=== PATIENT | female | born 1960 | race American Indian/Alaskan Native ===

== ENCOUNTER 2017-01-15 12:56 | Emergency (ER) | payer MEDICAID ==
[2017-01-15 12:56] VITALS: BMI 14.6
[2017-01-15 13:12] VITALS: RESP 18
[2017-01-15] MEDS ORDERED: Oxycodone/Acetaminophen 5/325 mg Tab PO STA (13:27)
[2017-01-15] MEDS ORDERED: Oxycodone/Acetaminophen 5/325 mg Tab ONE (13:36)
--- NOTE | 2017-01-15 14:00 | C.PDOC ---
History Of Present Illness 56 y/o female presents to ED with complaints of right leg pain for 1 week. Patient states she saw her PMD for symptoms and was given Flexiril with no relief which prompted visit to ED today. Patient denies trauma, injury, fever, weakness, back pain, history of DVT or PE. No other complaints at this time. Time Seen by Provider: 01/15/17 13:15 Chief Complaint (Nursing): Lower Extremity Problem/Injury History Per: Patient History/Exam Limitations: no limitations Onset/Duration Of Symptoms: Days Current Symptoms Are (Timing): Still Present Past Medical History Reviewed: Historical Data, Nursing Documentation, Vital Signs Vital Signs: Last Vital Signs Temp 98.7 F 01/15/17 14:59 Pulse 90 01/15/17 14:59 Resp 18 01/15/17 14:59 BP 157/110 H 01/15/17 14:59 Pulse Ox 100 01/15/17 14:59 - Medical History PMH: Colonic Polyps, HTN Surgical History: No Surg Hx - [facility] Procedures CLOSED BIOPSY OF SKIN AND SUBCUTANEOUS TISSUE (01/26/14) LARYGNOSCOPY AND OTH TRACHEOSCOPY (01/28/14) UVULA BIOPSY (01/28/14) Family History: States: No Known Family Hx - Social History Hx Alcohol Use: No Hx Substance Use: No - Immunization History Hx Tetanus Toxoid Vaccination: No Hx Influenza Vaccination: No Hx Pneumococcal Vaccination: No Review Of Systems Constitutional: Negative for: Fever, Chills Gastrointestinal: Negative for: Nausea, Vomiting Musculoskeletal: Positive for: Leg Pain. Negative for: Back Pain Skin: Negative for: Rash Neurological: Negative for: Weakness, Numbness Physical Exam - Physical Exam Appears: Non-toxic, No Acute Distress Skin: Warm, Dry, No Rash Head: Atraumatic, Normacephalic Eye(s): bilateral: Normal Inspection Oral Mucosa: Moist Neck: Normal ROM, Supple Chest: Symmetrical Extremity: Tenderness ((+)right hamstring), Calf Tenderness (right), Capillary Refill (<2 seconds), Other ((-)cellulitic process ) Extremity: Bilateral: Atraumatic, Normal ROM Pulses: Left Dorsalis Pedis: Normal, Right Dorsalis Pedis: Normal Neurological/Psych: Oriented x3, Normal Motor, Normal Sensation ED Course And Treatment O2 Sat by Pulse Oximetry: 97 (RA) Pulse Ox Interpretation: Normal Medical Decision Making Medical Decision Making: Progress: Doppler Negative Assessment: Musculoskeletal Pain Disposition Counseled Patient/Family Regarding: Studies Performed, Diagnosis, Need For Followup, Rx Given - Disposition Disposition: HOME/ ROUTINE Disposition Time: 14:47 Condition: STABLE Additional Instructions: follow up with your doctor in 2 days call to make an appointment take medications as prescribed return to hospital if symptoms worsens or progress Prescriptions: Acetaminophen/Codeine [Tylenol/Codeine 300 MG/30 MG] 1 tab PO Q6H PRN #12 tab PRN Reason: Pain, Severe (8-10) Instructions: Musculoskeletal Pain (ED) Forms: [facility] (Armenian), General Discharge Instructions - Clinical Impression Clinical Impression: Muscle strain - Scribe Statement The provider has reviewed the documentation as recorded by the Anna Marieibjoe Hamilton All medical record entries made by the Anna Marieibjoe were at my direction and personally dictated by me. I have reviewed the chart and agree that the record accurately reflects my personal performance of the history, physical exam, medical decision making, and the department course for this patient. I have also personally directed, reviewed, and agree with the discharge instructions and disposition.
[2017-01-15 15:00] VITALS: BP 157/110; PULSE 90; TEMP 98.7
[2017-01-15 15:02] VITALS: O2SAT 97
--- NOTE | 2017-01-17 10:48 | VASCLAB ---
PROCEDURE: Right Lower Extremity Venous Duplex Exam. HISTORY: leg pain PRIORS: None. TECHNIQUE: Right common femoral, femoral, popliteal and posterior tibial, peroneal and great saphenous veins were evaluated. Flow was assessed with color Doppler, compressibility, assessment of phasic flow and augmentation response. Report prepared by SINAN Hollis, RVT FINDINGS: RIGHT: 1. Common Femoral Vein: 1.1. Compressibility - Fully compressible: Thrombus - None: Flow - Phasic: Augmentation -Normal: Reflux - None. 2. Femoral Vein: 2.1. Compressibility - Fully compressible: Thrombus - None: Flow - Phasic: Augmentation -Normal: Reflux - None. 3. Popliteal Vein: 3.1. Compressibility - Fully compressible: Thrombus - None: Flow - Phasic: Augmentation -Normal: Reflux - None. 4. Posterior Tibial Vein: 4.1. Compressibility - Fully compressible: Thrombus - None: Flow - Phasic: Augmentation -Normal: Reflux - None. 5. Peroneal Vein: 5.1. Compressibility - Fully compressible: Thrombus - None: Flow - Phasic: Augmentation -Normal: Reflux - None. 6. Great Saphenous Vein: 6.1. Compressibility - Fully compressible: Thrombus -None: Flow - Phasic: Augmentation - Normal: Reflux - None. OTHER FINDINGS: IMPRESSION: No evidence of deep or superficial vein thrombosis of the right lower extremity with excellent venous flow. Normal valve function noted of the right side. Normal venous flow noted in the left common femoral vein.
== END 2017-01-15 15:02 | disposition home or self-care (01) ==
LOC: C.ER 12:56
DX: S86.911A Strain of unspecified muscle(s) and tendon(s) at lower leg level, right leg, initial encounter (principal); X58.XXXA Exposure to other specified factors, initial encounter

== ENCOUNTER 2017-03-04 13:34 | Emergency (ER) | payer MEDICAID ==
[2017-03-04 13:35] VITALS: BMI 14.6
[2017-03-04 14:20] VITALS: O2SAT 100
--- NOTE | 2017-03-04 15:58 | C.PDOC ---
History Of Present Illness 56 year old female, with history of chronic back pain, presents to ED for evaluation of right sided lower back pain radiating down to right hip and right leg worse for the past few days. Pt admits to having similar symptoms in the past. Notes taking unknown medication without improvement. Denies fall, trauma, chest pain, shortness of breath, headache, fever, chills, cough, nausea, vomiting, diarrhea, abdominal pain, bowel or bladder incontinence/retention, saddle anesthesia, paresthesia, focal weakness, sensory deficit, gait dysfunction, hematuria or dysuria. No previous history of DVT. Time Seen by Provider: 03/04/17 15:06 Chief Complaint (Nursing): Hip Pain History Per: Patient History/Exam Limitations: no limitations Onset/Duration Of Symptoms: Days Current Symptoms Are (Timing): Still Present Recent travel outside of the [place]: No Additional History Per: Patient Past Medical History Reviewed: Historical Data, Nursing Documentation, Vital Signs Vital Signs: Last Vital Signs Temp 97.9 F 03/04/17 17:23 Pulse 81 03/04/17 17:23 Resp 18 03/04/17 17:23 BP 195/110 H 03/04/17 17:56 Pulse Ox 100 03/04/17 17:23 - Medical History PMH: Colonic Polyps, HTN Denies: Chronic Kidney Disease - [facility] Procedures CLOSED BIOPSY OF SKIN AND SUBCUTANEOUS TISSUE (01/26/14) LARYGNOSCOPY AND OTH TRACHEOSCOPY (01/28/14) UVULA BIOPSY (01/28/14) Family History: States: Unknown Family Hx - Social History Hx Alcohol Use: No Hx Substance Use: No - Immunization History Hx Tetanus Toxoid Vaccination: No Hx Influenza Vaccination: No Hx Pneumococcal Vaccination: No Review Of Systems Except As Marked, All Systems Reviewed And Found Negative. Constitutional: Negative for: Fever, Chills Cardiovascular: Negative for: Chest Pain, Palpitations Respiratory: Negative for: Cough, Shortness of Breath Gastrointestinal: Negative for: Nausea, Vomiting, Abdominal Pain Genitourinary: Negative for: Dysuria, Frequency, Incontinence, Hematuria Musculoskeletal: Positive for: Back Pain, Leg Pain (right) Neurological: Negative for: Weakness, Numbness, Headache, Dizziness Physical Exam - Physical Exam Appears: Non-toxic, No Acute Distress Skin: Normal Color, Warm, Dry, No Rash Head: Normacephalic Eye(s): bilateral: PERRL Oral Mucosa: Moist, No Drooling Throat: No Drooling Neck: Trachea Midline, Supple Cardiovascular: Rhythm Regular, No Murmur, No JVD, Other ((-) carotid bruits B/L ) Respiratory: No Accessory Muscle Use, No Rales, No Rhonchi, No Wheezing Gastrointestinal/Abdominal: Soft, No Tenderness Back: No CVA Tenderness, No Vertebral Tenderness, Paraspinal Tenderness (right paralumbar) Extremity: Normal ROM, Tenderness (diffuse right thigh), No Pedal Edema, No Calf Tenderness, Capillary Refill (less than 2 seconds), No Deformity, No Swelling Extremity: Bilateral: Atraumatic, Normal Color And Temperature Neurological/Psych: Oriented x3, Normal Speech, Normal Motor, Normal Sensation Gait: Steady ED Course And Treatment O2 Sat by Pulse Oximetry: 100 (RA) Pulse Ox Interpretation: Normal - CT Scan/US Lumbar spine CT Other Rad Studies (CT/US): Read By Radiologist, Radiology Report Reviewed CT/US Interpretation: Impression: No acute fracture or subluxation identified. Progress Note: Urinalysis, lumbar spine CT was ordered and reviewed. Pt was given Prednisone, Valium, and Tramadol. On re-eval, pt is afebrile, hemodynamicaly stable. non-toxic. Ambulatory in ED with stable gait. ENT: no acute findings. Abd: benign, (-) guarding, (-) rebound,. back: (-) CVA tenderness. UA (+) nitrate. CT L-spine (-) acute findings. Pt has clinical findings c/w UTI, lumbar radiculopathy. As per RN, HTN was noted on discharge. Pt admits, did not take her BP medication today, non-complaint. Otherwise, pt denies headache, dizziness, CP, SOB, visual changes, focal deficits. Pt advised. ref. to F/u with PMD in 1-2 days for re-eavl. return if any new changes. Disposition Counseled Patient/Family Regarding: Studies Performed, Diagnosis, Need For Followup, Rx Given - Disposition Referrals: Shaik Zimmer MD [Staff Provider] - Disposition: HOME/ ROUTINE Disposition Time: 17:00 Condition: STABLE Additional Instructions: LIGHT DUTY TO LOWER BACK, AVOID HEAVY LIFTING, BENDING, ETC TAKE MEDICATION PRESCRIBED ENCOURAGE FLUIDS FOLLOW UP WITH PMD IN 2-3 DAYS FOR RE-EVALUATION. RETURN TO ED IF ANY WORSENING OR NEW CHANGES. 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 - Scribe Statement The provider has reviewed the documentation as recorded by the Anna Marieibjoe Che All medical record entries made by the Brian were at my direction and personally dictated by me. I have reviewed the chart and agree that the record accurately reflects my personal performance of the history, physical exam, medical decision making, and the department course for this patient. I have also personally directed, reviewed, and agree with the discharge instructions and disposition.
[2017-03-04 16:18] LABS: SQUAMOUS EPITHIAL 3 /hpf (0-5); URINE BACTERIA RARE (<OCC); URINE BILIRUBIN NEGATIVE (NEGATIVE); URINE BLOOD NEGATIVE (NEGATIVE); URINE CLARITY Hazy (Clear); URINE COLOR Yellow (YELLOW); URINE GLUCOSE (UA) NORMAL (Normal); URINE LEUKOCYTE ESTERASE 1+ Leu/uL (Negative); URINE NITRATE POSITIVE (NEGATIVE); URINE PROTEIN NEGATIVE (NEGATIVE)
--- NOTE | 2017-03-04 17:07 | CT ---
CT lumbar spine without IV contrast Indication: Pain Comparison: None available Technique: Noncontrast axial images of the lumbar spine were provided. Sagittal and coronal reformatted images were generated and reviewed. This CT exam was performed using 1 or more of the following dose reduction techniques: Automated exposure control, adjustment of the MAA and/or kV according to patient size, and/or use of iterative reconstruction technique. Total exam DLP: 278.29 MGy-cm Findings: Mild degenerative changes including small osteophyte formation. Vertebral body heights appear within normal limits. Alignment appears satisfactory. No acute fracture or subluxation identified. Paraspinal soft tissues appear unremarkable. Atherosclerotic calcifications of the aorta. Limited visualization of the intra-abdominal and intrapelvic contents appear otherwise grossly unremarkable. Impression: No acute fracture or subluxation identified.
[2017-03-04 17:24] VITALS: BP 195/110; PULSE 81; RESP 18; TEMP 97.9
== END 2017-03-04 17:57 | disposition home or self-care (01) ==
LOC: C.ER 13:34
DX: M54.16 Radiculopathy, lumbar region (principal); N39.0 Urinary tract infection, site not specified; I10 Essential (primary) hypertension

== ENCOUNTER 2017-03-10 09:22 | Emergency (ER) | payer MEDICAID ==
[2017-03-10 09:22] VITALS: BMI 14.6
[2017-03-10 09:28] VITALS: TEMP 98.2
--- NOTE | 2017-03-10 10:09 | C.PDOC ---
History Of Present Illness PERSIST R LOWER BACK PAIN X 1 WEEK. SEEN FOR SAME ON 03/04 BUT MIN RELIEF W FLEXERIL, TYL #3 AND MOTRIN. R LOWER BACK, RADIATION R BUTTOCK TO R CALF. INTERMIT WORSE W POSITION. NO ASSOC WEAK/NUM, FEVER. DENIES HO TRAUMA. FIRST EPISODE 12/2016. PS COMPLETED ABX FOR UTI ON 03-04 EXAM MOD DIST NONTOXIC BACK LIMITED ROM DUE TO PAIN. NONTEND. NO SPINAL TEND EXT +RLE +STRAIGHT LEG @ 30 DEG. ATRAUMA. AROM WO DIFF. NEURO INTACT REMAINDER NEG MDM PAIN MGMT REFER, NEED FOR POSISBLE ORTHO EVAL, PMD FU Time Seen by Provider: 03/10/17 09:55 Chief Complaint (Nursing): Lower Extremity Problem/Injury History Per: Patient History/Exam Limitations: no limitations Onset/Duration Of Symptoms: Days (1 week) Recent travel outside of the [place]: No Past Medical History Reviewed: Historical Data, Nursing Documentation, Vital Signs Vital Signs: Last Vital Signs Temp 98.2 F 03/10/17 09:28 Pulse 94 H 03/10/17 09:28 Resp 20 03/10/17 09:28 BP 100/75 03/10/17 09:28 Pulse Ox 98 03/10/17 10:12 - Medical History PMH: Colonic Polyps, HTN - [facility] Procedures CLOSED BIOPSY OF SKIN AND SUBCUTANEOUS TISSUE (01/26/14) LARYGNOSCOPY AND OTH TRACHEOSCOPY (01/28/14) UVULA BIOPSY (01/28/14) Family History: States: No Known Family Hx - Social History Hx Alcohol Use: No Hx Substance Use: No - Immunization History Hx Tetanus Toxoid Vaccination: No Hx Influenza Vaccination: No Hx Pneumococcal Vaccination: No Review Of Systems Except As Marked, All Systems Reviewed And Found Negative. Constitutional: Negative for: Fever Gastrointestinal: Negative for: Abdominal Pain Genitourinary: Negative for: Dysuria, Hematuria Musculoskeletal: Positive for: Back Pain (right lower back pain radiating to the right buttock to right calf ) Neurological: Negative for: Weakness, Numbness Physical Exam - Physical Exam Appears: Non-toxic, In Acute Distress (moderate) Skin: Warm, Dry, No Rash Head: Atraumatic, Normacephalic Neck: Normal, Normal ROM, Supple Respiratory: Normal Breath Sounds Back: Decreased ROM (limited due to pain), No Paraspinal Tenderness, Straight Leg Raising (RLE at 30 degree) Extremity: Normal ROM (RLE AROM w/o difficulty), No Calf Tenderness, No Swelling Neurological/Psych: Oriented x3, Normal Speech, Normal Sensation Gait: Steady ED Course And Treatment O2 Sat by Pulse Oximetry: 98 (RA) Pulse Ox Interpretation: Normal () Medical Decision Making Medical Decision Making: PLAN: * Gabapentin PO * Zofran PO * Percocet PO NOTE: Pain management refer, need for possible ortho eval, PMD follow up. Disposition Counseled Patient/Family Regarding: Diagnosis, Need For Followup, Rx Given - Disposition Referrals: Jonah Mercedes MD [Staff Provider] - Carlos Murphy III, MD [Staff Provider] - Disposition: HOME/ ROUTINE Disposition Time: 10:10 Condition: IMPROVED Additional Instructions: CONTINUE MOTRIN PREVIOUSLY PRESCRIBED. FOLLOW UP WITH ORTHOPEDICS, YOUR PMD AND/OR PAIN MANAGEMENT. Prescriptions: Dexamethasone 12 mg PO ONCE #2 tab Gabapentin [Neurontin] 300 mg PO PRN PRN #30 cap PRN Reason: Pain, Mild (1-3) oxyCODONE/Acetaminophen [Percocet 5/325 mg Tab] 1 ea PO QID #8 tab Instructions: Sciatica (ED) Forms: [employer] ([place]an) - Clinical Impression Clinical Impression: Lumbar radiculopathy - Scribe Statement The provider has reviewed the documentation as recorded by the Brian Lai Provider Attestation: All medical record entries made by the Anna Marieibjoe were at my direction and personally dictated by me. I have reviewed the chart and agree that the record accurately reflects my personal performance of the history, physical exam, medical decision making, and the department course for this patient. I have also personally directed, reviewed, and agree with the discharge instructions and disposition.
[2017-03-10] MEDS ORDERED: Oxycodone/Acetaminophen 5/325 mg Tab PO STA (10:12)
[2017-03-10] MEDS ORDERED: Oxycodone/Acetaminophen 5/325 mg Tab ONE (10:18)
[2017-03-10 10:57] VITALS: BP 127/88; PULSE 69; RESP 18; O2SAT 100
== END 2017-03-10 11:23 | disposition home or self-care (01) ==
LOC: C.ER 09:22
DX: M54.16 Radiculopathy, lumbar region (principal)
CPT/HCPCS: 96372; 99284; J1885

== ENCOUNTER 2017-03-13 11:30 | Inpatient (IN) | payer MEDICAID ==
[2017-03-13 11:42] VITALS: BMI 15.7
--- NOTE | 2017-03-13 11:56 | C.PDOC ---
History Of Present Illness 56F presents w multiple complaints. she reports right buttock pain rad all the way down right leg for a couple weeks- she has been seem here twice before for this. now for 1 week she has cough, poor appetite, gen weakness, "dehydration." she is taking multiple meds for pain but are not helping. Time Seen by Provider: 03/13/17 11:43 Chief Complaint (Nursing): Dizziness/Lightheaded Past Medical History Vital Signs: Last Vital Signs Temp 98 F 03/16/17 08:00 Pulse 67 03/16/17 08:00 Resp 20 03/16/17 08:00 BP 149/88 03/16/17 08:00 Pulse Ox 98 03/16/17 08:00 - Medical History PMH: Colonic Polyps, HTN Denies: Chronic Kidney Disease - [facility] Procedures CLOSED BIOPSY OF SKIN AND SUBCUTANEOUS TISSUE (01/26/14) LARYGNOSCOPY AND OTH TRACHEOSCOPY (01/28/14) UVULA BIOPSY (01/28/14) Family History: States: Unknown Family Hx - Social History Hx Alcohol Use: No Hx Substance Use: No - Immunization History Hx Tetanus Toxoid Vaccination: No Hx Influenza Vaccination: No Hx Pneumococcal Vaccination: No Review Of Systems Except As Marked, All Systems Reviewed And Found Negative. Constitutional: Positive for: Weakness. Negative for: Fever, Chills Cardiovascular: Negative for: Chest Pain Respiratory: Positive for: Cough. Negative for: Shortness of Breath, Hemoptysis Gastrointestinal: Negative for: Nausea, Vomiting, Abdominal Pain Musculoskeletal: Negative for: Neck Pain Neurological: Negative for: Weakness, Numbness (no focal), Headache Physical Exam - Physical Exam Appears: Well, Non-toxic, No Acute Distress Skin: Warm, Dry Head: Atraumatic Eye(s): bilateral: PERRL, EOMI Nose: No Epistaxis Oral Mucosa: Moist Tongue: No Swelling Neck: Normal ROM Cardiovascular: Rhythm Regular Respiratory: No Decreased Breath Sounds, No Accessory Muscle Use, No Rales, No Rhonchi, No Stridor, No Wheezing Gastrointestinal/Abdominal: Soft, No Tenderness, No Distention Back: No Vertebral Tenderness Extremity: Normal ROM, No Deformity, No Swelling Pulses: Left Radial: Normal, Right Radial: Normal, Left Dorsalis Pedis: Normal, Right Dorsalis Pedis: Normal Neurological/Psych: Oriented x3, Normal Motor, Normal Sensation, Other (no focal deficits. nl strength b/l hip/knee/ankle flex/ext and EHL. reflex sym, neg babinski, no clonus.) ED Course And Treatment - Laboratory Results Result Diagrams: 03/15/17 08:06 03/16/17 08:19 O2 Sat by Pulse Oximetry: 96 Medical Decision Making Medical Decision Making: EKG --Normal sinus rhythm, 71 bpm. No STEMI Disposition - Disposition Disposition: HOSPITALIZED Disposition Time: 13:54 Condition: STABLE - Clinical Impression Clinical Impression: Leukopenia, Hyponatremia, Hypokalemia, Lumbar radiculopathy
[2017-03-13] MEDS ORDERED: Sodium Chloride 0.9% 1,000 ML IV ONE (12:29)
[2017-03-13 12:59] LABS: VENOUS BLOOD GAS BASE EXCESS 9.4 mmol/L (0.0-2.0); VENOUS BLOOD GAS PCO2 46 mmHg (40-60); VENOUS BLOOD GAS PO2 33 mm/Hg (30-55); VENOUS BLOOD PH 7.48 (7.32-7.43)
[2017-03-13 13:03] LABS: EOS % 0.6 % (0.0-4.0); HEMOGLOBIN 11.4 g/dL (11.0-16.0); LYMPH # 0.2 K/uL (1.0-4.3); LYMPH % 18.9 % (20.0-40.0); MEAN CORPUSCULAR HEMOGLOBIN 37.1 pg (27.0-31.0); MEAN CORPUSCULAR HGB CONC 36.3 g/dL (33.0-37.0); MEAN PLATELET VOLUME 6.2 fL (7.2-11.7); MONO # 0.3 K/uL (0.0-0.8); NEUT # 0.7 K/uL (1.8-7.0); NEUT % 55.5 % (50.0-75.0); NRBC % 0.1 % (0.0-2.0); PLATELET COUNT 221 K/uL (130-400); RBC 3.08 Mil/uL (3.80-5.20); RED CELL DISTRIBUTION WIDTH 13.5 % (11.5-14.5)
[2017-03-13] MEDS ORDERED: Sodium Chloride 0.9% 1,000 ML ONE (13:05)
[2017-03-13] MEDS ORDERED: Morphine 4 MG/ML VIAL ONE ×2 (13:05→15:11)
[2017-03-13 13:11] LABS: MEAN CELL VOLUME 102.2 fL (81.0-99.0); WHITE BLOOD COUNT 1.3 K/uL (4.8-10.8)
[2017-03-13 13:25] LABS: ALB/GLOB RATIO 1.3 (1.0-2.1); ALBUMIN 3.9 g/dL (3.5-5.0); ALT/SGPT 39 U/L (9-52); AST/SGOT 54 U/L (14-36); BLOOD UREA NITROGEN 10 mg/dL (7-17); CALCIUM 8.7 mg/dl (8.6-10.4); GFR AFRICAN-AMERICAN > 60; GFR NON-AFRICAN AMERICAN > 60
[2017-03-13] MEDS ORDERED: Potassium Chloride 20 mEq ER Tab PO STA (13:32)
[2017-03-13] MEDS ORDERED: Magnesium Sulfate 1 gm in D5W 1 GM/100 ML BAG IVPB ONE ×2 (13:32→15:00)
[2017-03-13] MEDS ORDERED: Moxifloxacin IV 400mg/250ml NS 400 MG/250 ML BAG IVPB ONE ×2 (13:33→15:41)
--- NOTE | 2017-03-13 13:36 | RAD ---
HISTORY: weak COMPARISON: Chest x-ray performed 07/12/16 TECHNIQUE: Chest, one view. FINDINGS: LUNGS: No focal consolidation. 12 mm nodular density projects over the right mid lung zone appears consistent with nipple shadow. Please note that chest x-ray has limited sensitivity for the detection of pulmonary masses. PLEURA: No significant pleural effusion identified. No definite pneumothorax . CARDIOVASCULAR: Heart size appears within normal limits. OSSEOUS STRUCTURES: No acute osseous abnormality identified. VISUALIZED UPPER ABDOMEN: Unremarkable. OTHER FINDINGS: None. IMPRESSION: No acute findings identified. See above.
[2017-03-13 14:21] LABS: LYMPHOCYTE 10 % (20-40); MONOCYTE 15 % (0-10); NEUTROPHIL 75 % (50-75); PLATELET ESTIMATE NORMAL (NORMAL); TOTAL CELLS COUNTED 100
[2017-03-13 14:50] LABS: SQUAMOUS EPITHIAL 2 /hpf (0-5); URINE BACTERIA RARE (<OCC); URINE BILIRUBIN NEGATIVE (NEGATIVE); URINE BLOOD NEGATIVE (NEGATIVE); URINE CLARITY Clear (Clear); URINE COLOR Yellow (YELLOW); URINE GLUCOSE (UA) NORMAL (Normal); URINE LEUKOCYTE ESTERASE NEG Leu/uL (Negative); URINE NITRATE NEGATIVE (NEGATIVE); URINE PROTEIN NEGATIVE (NEGATIVE)
[2017-03-13] MEDS ORDERED: Potassium Chloride 20 mEq ER Tab PO ONE (14:59)
[2017-03-13] MEDS ORDERED: Potassium Chloride 20 mEq/15 ml LIQ UD PO STA (15:08)
[2017-03-13] MEDS ORDERED: Potassium Chloride 20 mEq/15 ml LIQ UD ONE (15:40)
[2017-03-13 15:47] LABS: OSMOLALITY,URINE 304 mosm/kg (300-1000)
--- NOTE | 2017-03-13 18:50 | CP.PCM.HP ---
Past Patient History - Past Medical History & Family History Past Medical History?: Yes - Past Social History Smoking Status: Former Smoker - CARDIAC Hx Hypertension: Yes - PULMONARY Hx Respiratory Disorders: No - NEUROLOGICAL Hx Neurological Disorder: No - HEENT Hx HEENT Problems: Yes Other/Comment: PALATIAL EDEMA - RENAL Hx Chronic Kidney Disease: No - ENDOCRINE/METABOLIC Hx Endocrine Disorders: No - HEMATOLOGICAL/ONCOLOGICAL Hx Blood Disorders: No - INTEGUMENTARY Hx Dermatological Problems: No - MUSCULOSKELETAL/RHEUMATOLOGICAL Hx Musculoskeletal Disorders: Yes Other/Comment: SCIATICA - GASTROINTESTINAL Hx Gastrointestinal Disorders: Yes - GENITOURINARY/GYNECOLOGICAL Hx Genitourinary Disorders: No - PSYCHIATRIC Hx Substance Use: No - SURGICAL HISTORY Hx Surgeries: Yes Other/Comment: NECK BIOPSY, HX OF REMOVAL OF TONSIL AND LYMPH NODE 2013. states she has cancer - thyroid area - ANESTHESIA Hx Anesthesia: Yes Hx Anesthesia Reactions: No Hx Malignant Hyperthermia: No Meds Allergies/Adverse Reactions: Allergies Allergy/AdvReac Type Severity Reaction Status Date / Time No Known Allergies Allergy Verified 03/13/17 11:41 Results - Vital Signs Recent Vital Signs: Last Vital Signs Temp 99.1 F 03/13/17 14:51 Pulse 69 03/13/17 17:52 Resp 16 03/13/17 17:52 BP 144/95 H 03/13/17 17:52 Pulse Ox 100 03/13/17 17:52 - Labs Result Diagrams: 03/13/17 12:56 03/13/17 12:56 Labs: Laboratory Results - last 24 hr 03/13/17 03/13/17 03/13/17 12:29 12:50 12:56 WBC 1.3 L* D RBC 3.08 L Hgb 11.4 Hct 31.5 L MCV 102.2 H D MCH 37.1 H MCHC 36.3 RDW 13.5 Plt Count 221 MPV 6.2 L Neut % (Auto) 55.5 Lymph % (Auto) 18.9 L Vilas % (Auto) 24.0 H Eos % (Auto) 0.6 Baso % (Auto) 1.0 Neut # 0.7 L Lymph # 0.2 L Vilas # 0.3 Eos # 0.0 Baso # 0.0 Neutrophils % (Manual) 75 Lymphocytes % (Manual) 10 L Monocytes % (Manual) 15 H Platelet Estimate Normal Macrocytosis (manual) Slight pO2 33 VBG pH 7.48 H VBG pCO2 46 VBG HCO3 31.5 VBG Total CO2 35.7 H VBG O2 Sat (Calc) 70.5 H VBG Base Excess 9.4 H VBG Potassium 2.8 L Sodium 128.0 L Chloride 90.0 L Glucose 86 Lactate 1.1 Crit Value Called To Dr ruiz Crit Value Called By Chirag ferrell registration rep Crit Value Read Back Y Blood Gas Notified Time 1258 Potassium Carbon Dioxide Anion Gap BUN Creatinine Est GFR ( Amer) Est GFR (Non-Af Amer) Random Glucose Serum Osmolality Calcium Total Bilirubin AST ALT Alkaline Phosphatase Troponin I Total Protein Albumin Globulin Albumin/Globulin Ratio Venous Blood Potassium 2.8 L Urine Color Urine Clarity Urine pH Ur Specific Alpha Urine Protein Urine Glucose (UA) Urine Ketones Urine Blood Urine Nitrate Urine Bilirubin Urine Urobilinogen Ur Leukocyte Esterase Urine WBC (Auto) Urine RBC (Auto) Ur Squamous Epith Cells Urine Bacteria Urine Osmolality Ur Random Sodium Influenza Typ A,B (EIA) Negative for flu a/b 03/13/17 03/13/17 03/13/17 12:56 14:41 14:41 WBC RBC Hgb Hct MCV MCH MCHC RDW Plt Count MPV Neut % (Auto) Lymph % (Auto) Vil[place] % (Auto) Eos % (Auto) Baso % (Auto) Neut # Lymph # [place] # Eos # Baso # Neutrophils % (Manual) Lymphocytes % (Manual) Monocytes % (Manual) Platelet Estimate Macrocytosis (manual) pO2 VBG pH VBG pCO2 VBG HCO3 VBG Total CO2 VBG O2 Sat (Calc) VBG Base Excess VBG Potassium Sodium 121 L Chloride 83 L D Glucose Lactate Crit Value Called To Crit Value Called By Crit Value Read Back Blood Gas Notified Time Potassium 3.0 L Carbon Dioxide 30 Anion Gap 11 BUN 10 Creatinine 0.8 Est GFR ( Amer) > 60 Est GFR (Non-Af Amer) > 60 Random Glucose 92 Serum Osmolality 265 L Calcium 8.7 Total Bilirubin 0.4 AST 54 H ALT 39 Alkaline Phosphatase 50 Troponin I 0.0170 Total Protein 6.9 Albumin 3.9 Globulin 3.0 Albumin/Globulin Ratio 1.3 Venous Blood Potassium Urine Color Yellow Urine Clarity Clear Urine pH 7.0 Ur Specific Alpha 1.009 Urine Protein Negative Urine Glucose (UA) Normal Urine Ketones Trace Urine Blood Negative Urine Nitrate Negative Urine Bilirubin Negative Urine Urobilinogen 4.0 H Ur Leukocyte Esterase Neg Urine WBC (Auto) < 1 Urine RBC (Auto) < 1 Ur Squamous Epith Cells 2 Urine Bacteria Rare Urine Osmolality Ur Random Sodium Influenza Typ A,B (EIA) 03/13/17 14:41 WBC RBC Hgb Hct MCV MCH MCHC RDW Plt Count MPV Neut % (Auto) Lymph % (Auto) Vil[place] % (Auto) Eos % (Auto) Baso % (Auto) Neut # Lymph # [place] # Eos # Baso # Neutrophils % (Manual) Lymphocytes % (Manual) Monocytes % (Manual) Platelet Estimate Macrocytosis (manual) pO2 VBG pH VBG pCO2 VBG HCO3 VBG Total CO2 VBG O2 Sat (Calc) VBG Base Excess VBG Potassium Sodium Chloride Glucose Lactate Crit Value Called To Crit Value Called By Crit Value Read Back Blood Gas Notified Time Potassium Carbon Dioxide Anion Gap BUN Creatinine Est GFR ( Amer) Est GFR (Non-Af Amer) Random Glucose Serum Osmolality Calcium Total Bilirubin AST ALT Alkaline Phosphatase Troponin I Total Protein Albumin Globulin Albumin/Globulin Ratio Venous Blood Potassium Urine Color Urine Clarity Urine pH Ur Specific Alpha Urine Protein Urine Glucose (UA) Urine Ketones Urine Blood Urine Nitrate Urine Bilirubin Urine Urobilinogen Ur Leukocyte Esterase Urine WBC (Auto) Urine RBC (Auto) Ur Squamous Epith Cells Urine Bacteria Urine Osmolality 304 Ur Random Sodium 74 Influenza Typ A,B (EIA)
[2017-03-13] MEDS ORDERED: Sodium Chloride 0.9% 1,000 ML IV SCH (21:15)
[2017-03-13] MEDS: Oxycodone/Acetaminophen 5/325 mg Tab PO SCH (22:46)
[2017-03-14 00:13] VITALS: RESP 20
[2017-03-14] MEDS: Oxycodone/Acetaminophen 5/325 mg Tab PO SCH ×4 (09:03→21:56)
[2017-03-14] MEDS: Metoprolol Succinate 100 mg XL Tab PO SCH (09:04)
[2017-03-14] MEDS: METHOCARBAMOL 500MG PO SCH ×3 (09:05→18:02)
[2017-03-14] MEDS: Enoxaparin 30 mg Syringe SC SCH (09:05)
[2017-03-14] MEDS: Diclofenac Sodium Delayed Release 75 mg EC Tab PO SCH ×2 (09:19→17:47)
[2017-03-14] MEDS ORDERED: METHOCARBAMOL 500 MG PO SCH (10:00)
--- NOTE | 2017-03-14 11:13 | CP.PCM.CON ---
<Hoa Lozada - Last Filed: 03/14/17 14:04> History of Present Illness - History of Present Illness History of Present Illness: Heme/Onc consult for Dr. Devon Le Reason for consultation: leukopenia 56 year old AA female with PMHx of thyroid cancer, sciatica, low back pain, HTN and anemia as a child was admitted on 03/13/17 for generalized weakness and cough for 1 week. Admits main reason for presentation is the leg pain radiating from her back, which does not allow her to walk. Patient was found to have low leukocytes during lab work in the ED. Patient denies recent outpatient blood work and does not know if her levels have ever been low. Admits to history of thyroid cancer, treated with surgery and radiation in 2013. Patient's oncologist is Dr. Penaloza at [facility] in [place]. She last saw him in December of 2016 and follows regularly. She also follows with Dr. Zimmer as her PMD. As per chart, patient has history of abnormal thyroid studies in 2012. Right neck mass FNA done in 2013 showed malignant cells that could not be classified. Colonoscopy done in 2015 showed tubular adenoma with need for 5 year repeat colonoscopy. Last mammogram done was in 01/22/17, which was normal. Of note, patient had recent CT of L-spine for radiating low back pain, which showed degenerative changes. Admits to history of anemia as a child where she was told to consume liver. Denies history of transfusions. PMHx: thyroid cancer, sciatica, low back pain, HTN and anemia as a child. Allergies: NKDA Surgical Hx: neck mass surgery, lymph node surgery in 2013. R shoulder surgery. Family Hx: denies family history of cancers Social Hx: smokes 1 cigaret a day. Social alcohol use. Denies drug use. Review of systems: All remaining review of systems including HEENT, cardiovascular, respiratory, gastrointestinal, genitourinary, musculoskeletal, dermatologic, neurologic, and psychiatric are negative unless mentioned in the HPI. Review of Systems - Constitutional Constitutional: Fatigue. absent: Fever - EENT Eyes: absent: Blurred Vision, Change in Vision - Cardiovascular Cardiovascular: absent: Chest Pain, Dyspnea, Edema - Respiratory Respiratory: Cough. absent: Dyspnea - Gastrointestinal Gastrointestinal: absent: Abdominal Pain, Constipation, Diarrhea, Nausea, Vomiting - Genitourinary Genitourinary: absent: Change in Urinary Stream, Dysuria - Musculoskeletal Musculoskeletal: Back Pain, Radiating Pain into Limb. absent: Neck Pain, Stiffness - Integumentary Integumentary: absent: Rash, Wounds - Neurological Neurological: Weakness. absent: Dizziness, Syncope - Endocrine Endocrine: Fatigue. absent: Palpitations - Hematologic/Lymphatic Hematologic: absent: Easy Bleeding, Easy Bruising Past Patient History - Past Medical History & Family History Past Medical History?: Yes - Past Social History Smoking Status: Former Smoker - CARDIAC Hx Hypertension: Yes - PULMONARY Hx Respiratory Disorders: No - NEUROLOGICAL Hx Neurological Disorder: No - HEENT Hx HEENT Problems: Yes Other/Comment: PALATIAL EDEMA - RENAL Hx Chronic Kidney Disease: No - ENDOCRINE/METABOLIC Hx Endocrine Disorders: No - HEMATOLOGICAL/ONCOLOGICAL Hx Blood Disorders: No - INTEGUMENTARY Hx Dermatological Problems: No - MUSCULOSKELETAL/RHEUMATOLOGICAL Hx Musculoskeletal Disorders: Yes Other/Comment: SCIATICA - GASTROINTESTINAL Hx Gastrointestinal Disorders: Yes - GENITOURINARY/GYNECOLOGICAL Hx Genitourinary Disorders: No - PSYCHIATRIC Hx Substance Use: No - SURGICAL HISTORY Hx Surgeries: Yes Other/Comment: NECK BIOPSY, HX OF REMOVAL OF TONSIL AND LYMPH NODE 2014. states she has cancer - thyroid area - ANESTHESIA Hx Anesthesia: Yes Hx Anesthesia Reactions: No Hx Malignant Hyperthermia: No Meds Allergies/Adverse Reactions: Allergies Allergy/AdvReac Type Severity Reaction Status Date / Time No Known Allergies Allergy Verified 03/13/17 11:41 - Medications Medications: Current Medications Cyclobenzaprine HCl (Flexeril) 5 mg PO DAILY [facility] Last Admin: 03/14/17 09:06 Dose: 5 mg Diclofenac Sodium (Voltaren) 75 mg PO BID [facility] Last Admin: 03/14/17 09:19 Dose: Not Given Enoxaparin Sodium (Lovenox) 30 mg SC DAILY [facility] Last Admin: 03/14/17 09:05 Dose: 30 mg Gabapentin (Neurontin) 300 mg PO TID [facility] Last Admin: 03/14/17 09:04 Dose: 300 mg Home Med (Patient's Own Medication) 500 tab PO TID [facility] Stop: 03/15/17 14:01 Last Admin: 03/14/17 09:05 Dose: 500 tab Sodium Chloride (Sodium Chloride 0.9%) 1,000 mls @ 50 mls/hr IV .Q20H [facility] Last Admin: 03/13/17 21:24 Dose: 50 mls/hr Losartan Potassium (Cozaar) 100 mg PO DAILY [facility] Last Admin: 03/14/17 09:04 Dose: 100 mg Metoprolol Succinate (Toprol Xl) 100 mg PO DAILY [facility] Last Admin: 03/14/17 09:04 Dose: 100 mg Oxycodone/Acetaminophen (Percocet 5/325 Mg Tab) 1 tab PO QID [facility] Stop: 03/16/17 22:01 Last Admin: 03/14/17 09:03 Dose: 1 tab Physical Exam - Constitutional Appears: No Acute Distress, Other (thin) - Head Exam Head Exam: NORMAL INSPECTION, NORMOCEPHALIC - Eye Exam Eye Exam: EOMI, Normal appearance - ENT Exam ENT Exam: Mucous Membranes Moist Additional comments: +right neck scar. +right submandibular fullness - Neck Exam Neck exam: Positive for: Full Rom. Negative for: Lymphadenopathy, Tenderness - Respiratory Exam Respiratory Exam: Clear to Auscultation Bilateral. absent: Rales, Rhonchi, Wheezes - Cardiovascular Exam Cardiovascular Exam: REGULAR RHYTHM, +S1, +S2 - GI/Abdominal Exam GI & Abdominal Exam: Normal Bowel Sounds, Soft. absent: Distended, Tenderness - Extremities Exam Extremities exam: Positive for: full ROM, normal inspection. Negative for: pedal edema - Back Exam Back exam: NORMAL INSPECTION - Neurological Exam Neurological exam: Alert, Oriented x3 - Psychiatric Exam Psychiatric exam: Normal Affect, Normal Mood - Skin Skin Exam: Normal Color, Warm Results - Vital Signs Recent Vital Signs: Last Vital Signs Temp 98.0 F 03/14/17 08:00 Pulse 68 03/14/17 08:00 Resp 20 03/14/17 08:00 BP 164/90 H 03/14/17 08:00 Pulse Ox 98 03/14/17 08:00 - Labs Result Diagrams: 03/13/17 12:56 03/14/17 11:46 Labs: Laboratory Results - last 24 hr 03/13/17 03/13/17 03/13/17 12:29 12:50 12:56 WBC 1.3 L* D RBC 3.08 L Hgb 11.4 Hct 31.5 L MCV 102.2 H D MCH 37.1 H MCHC 36.3 RDW 13.5 Plt Count 221 MPV 6.2 L Neut % (Auto) 55.5 Lymph % (Auto) 18.9 L [place] % (Auto) 24.0 H Eos % (Auto) 0.6 Baso % (Auto) 1.0 Neut # 0.7 L Lymph # 0.2 L [place] # 0.3 Eos # 0.0 Baso # 0.0 Neutrophils % (Manual) 75 Lymphocytes % (Manual) 10 L Monocytes % (Manual) 15 H Platelet Estimate Normal Macrocytosis (manual) Slight pO2 33 VBG pH 7.48 H VBG pCO2 46 VBG HCO3 31.5 VBG Total CO2 35.7 H VBG O2 Sat (Calc) 70.5 H VBG Base Excess 9.4 H VBG Potassium 2.8 L Sodium 128.0 L Chloride 90.0 L Glucose 86 Lactate 1.1 Crit Value Called To Dr ruiz Crit Value Called By Chirag ferrell telegraph editor Crit Value Read Back Y Blood Gas Notified Time 1258 Potassium Carbon Dioxide Anion Gap BUN Creatinine Est GFR ( Amer) Est GFR (Non-Af Amer) Random Glucose Serum Osmolality Calcium Total Bilirubin AST ALT Alkaline Phosphatase Troponin I Total Protein Albumin Globulin Albumin/Globulin Ratio Venous Blood Potassium 2.8 L Urine Color Urine Clarity Urine pH Ur Specific [place] Urine Protein Urine Glucose (UA) Urine Ketones Urine Blood Urine Nitrate Urine Bilirubin Urine Urobilinogen Ur Leukocyte Esterase Urine WBC (Auto) Urine RBC (Auto) Ur Squamous Epith Cells Urine Bacteria Urine Osmolality Ur Random Sodium Influenza Typ A,B (EIA) Negative for flu a/b 03/13/17 03/13/17 03/13/17 12:56 14:41 14:41 WBC RBC Hgb Hct MCV MCH MCHC RDW Plt Count MPV Neut % (Auto) Lymph % (Auto) [place] % (Auto) Eos % (Auto) Baso % (Auto) Neut # Lymph # [place] # Eos # Baso # Neutrophils % (Manual) Lymphocytes % (Manual) Monocytes % (Manual) Platelet Estimate Macrocytosis (manual) pO2 VBG pH VBG pCO2 VBG HCO3 VBG Total CO2 VBG O2 Sat (Calc) VBG Base Excess VBG Potassium Sodium 121 L Chloride 83 L D Glucose Lactate Crit Value Called To Crit Value Called By Crit Value Read Back Blood Gas Notified Time Potassium 3.0 L Carbon Dioxide 30 Anion Gap 11 BUN 10 Creatinine 0.8 Est GFR ( Amer) > 60 Est GFR (Non-Af Amer) > 60 Random Glucose 92 Serum Osmolality 265 L Calcium 8.7 Total Bilirubin 0.4 AST 54 H ALT 39 Alkaline Phosphatase 50 Troponin I 0.0170 Total Protein 6.9 Albumin 3.9 Globulin 3.0 Albumin/Globulin Ratio 1.3 Venous Blood Potassium Urine Color Yellow Urine Clarity Clear Urine pH 7.0 Ur Specific [place] 1.009 Urine Protein Negative Urine Glucose (UA) Normal Urine Ketones Trace Urine Blood Negative Urine Nitrate Negative Urine Bilirubin Negative Urine Urobilinogen 4.0 H Ur Leukocyte Esterase Neg Urine WBC (Auto) < 1 Urine RBC (Auto) < 1 Ur Squamous Epith Cells 2 Urine Bacteria Rare Urine Osmolality Ur Random Sodium Influenza Typ A,B (EIA) 03/13/17 14:41 WBC RBC Hgb Hct MCV MCH MCHC RDW Plt Count MPV Neut % (Auto) Lymph % (Auto) [place] % (Auto) Eos % (Auto) Baso % (Auto) Neut # Lymph # [place] # Eos # Baso # Neutrophils % (Manual) Lymphocytes % (Manual) Monocytes % (Manual) Platelet Estimate Macrocytosis (manual) pO2 VBG pH VBG pCO2 VBG HCO3 VBG Total CO2 VBG O2 Sat (Calc) VBG Base Excess VBG Potassium Sodium Chloride Glucose Lactate Crit Value Called To Crit Value Called By Crit Value Read Back Blood Gas Notified Time Potassium Carbon Dioxide Anion Gap BUN Creatinine Est GFR ( Amer) Est GFR (Non-Af Amer) Random Glucose Serum Osmolality Calcium Total Bilirubin AST ALT Alkaline Phosphatase Troponin I Total Protein Albumin Globulin Albumin/Globulin Ratio Venous Blood Potassium Urine Color Urine Clarity Urine pH Ur Specific [place] Urine Protein Urine Glucose (UA) Urine Ketones Urine Blood Urine Nitrate Urine Bilirubin Urine Urobilinogen Ur Leukocyte Esterase Urine WBC (Auto) Urine RBC (Auto) Ur Squamous Epith Cells Urine Bacteria Urine Osmolality 304 Ur Random Sodium 74 Influenza Typ A,B (EIA) Assessment & Plan (1) Leukopenia Assessment and Plan: Medications reviewed. Gabapentin and Methocarbanol have potential to cause leukopenia MDS is part of differential since patient has elevated MCV, leukopenia, thrombocytopenia and monocytosis Give patient's history of thyroid cancer will check TSH Check HIV and Hep panel Patient does not need neutropenic precautions since ANC> 500 Status: Acute (2) Anemia Assessment and Plan: H/H 11.4 and 31.5 Check retic count, folate, B12, stool occult blood, and ferritin Status: Acute (3) History of thyroid cancer Assessment and Plan: Patient underwent resection and radiation in 2013. Follows at [facility] with Dr. Penaloza. Patient not on Synthroid Will check TSH as above. Status: Acute - Assessment and Plan (Free Text) Assessment: Patient seen and examined during rounds with Dr. Le. Recommendations above as per attending. Mikey Lozada, PGY 3 <Robinson Le - Last Filed: 03/14/17 21:20> Meds - Medications Medications: Current Medications Amlodipine Besylate (Norvasc) 5 mg PO DAILY [facility] Last Admin: 03/14/17 12:20 Dose: 5 mg Cyclobenzaprine HCl (Flexeril) 5 mg PO DAILY [facility] Last Admin: 03/14/17 09:06 Dose: 5 mg Diclofenac Sodium (Voltaren) 75 mg PO BID [facility] Last Admin: 03/14/17 17:47 Dose: Not Given Emollient Ointment (Vaseline Oint) 5 gm TOP TID [facility] Last Admin: 03/14/17 17:31 Dose: 5 gm Enoxaparin Sodium (Lovenox) 30 mg SC DAILY [facility] Last Admin: 03/14/17 09:05 Dose: 30 mg Gabapentin (Neurontin) 300 mg PO TID [facility] Last Admin: 03/14/17 17:34 Dose: 300 mg Home Med (Patient's Own Medication) 500 tab PO TID [facility] Stop: 03/15/17 14:01 Last Admin: 03/14/17 18:02 Dose: 500 tab Sodium Chloride (Sodium Chloride 0.9%) 1,000 mls @ 75 mls/hr IV .[id number] [facility] Last Admin: 03/14/17 17:31 Dose: 75 mls/hr Losartan Potassium (Cozaar) 100 mg PO DAILY [facility] Last Admin: 03/14/17 09:04 Dose: 100 mg Metoprolol Succinate (Toprol Xl) 100 mg PO DAILY [facility] Last Admin: 03/14/17 09:04 Dose: 100 mg Oxycodone/Acetaminophen (Percocet 5/325 Mg Tab) 1 tab PO QID [facility] Stop: 03/16/17 22:01 Last Admin: 03/14/17 17:32 Dose: 1 tab Potassium Chloride (K-Dur 20 Meq Er Tab) 40 meq PO DAILY [facility] Last Admin: 03/14/17 15:31 Dose: 40 meq Potassium Phos/Sodium Phos (Neutra-Phos) 1 pkt PO TID [facility] Stop: 03/17/17 14:00 Results - Vital Signs Recent Vital Signs: Last Vital Signs Temp 97.9 F 03/14/17 17:09 Pulse 64 03/14/17 17:09 Resp 20 03/14/17 17:09 BP 150/89 03/14/17 17:09 Pulse Ox 100 03/14/17 17:09 - Labs Result Diagrams: 03/14/17 14:34 03/14/17 17:28 Labs: Laboratory Results - last 24 hr 03/14/17 03/14/17 03/14/17 11:46 11:46 14:24 WBC RBC Hgb Hct MCV MCH MCHC RDW Plt Count MPV Neut % (Auto) Lymph % (Auto) [place] % (Auto) Eos % (Auto) Baso % (Auto) Neut # Lymph # [place] # Eos # Baso # Total Counted Neutrophils % (Manual) Band Neutrophils % Lymphocytes % (Manual) Reactive Lymphs % Monocytes % (Manual) Eosinophils % (Manual) Basophils % (Manual) Metamyelocytes % Myelocytes % Promyelocytes % Blast Cells % Plasma Cell % (Manual) Nucleated RBC % Hypersegmented Polys Smudge Cells Toxic Granulation Dohle Bodies Gracia Rods Platelet Estimate Plt Clumps, EDTA Large Platelets Giant Platelets RBC Morphology Polychromasia Hypochromasia (manual) Poikilocytosis (manual Basophilic Stippling Anisocytosis (manual) Microcytosis (manual) Macrocytosis (manual) Spherocytes Sickle Cells Target Cells Tear Drop Cells Ovalocytes Stomatocytes Helmet Cells [place] Bodies Leyla Cells Acanthocytes (Spur) Rouleaux Schistocytes Retic Count 0.5 Sodium 123 L Potassium 3.2 L Chloride 86 L Carbon Dioxide 30 Anion Gap 10 BUN 4 L Creatinine 0.8 Est GFR ( Amer) > 60 Est GFR (Non-Af Amer) > 60 Random Glucose 91 Calcium 8.0 L Phosphorus Magnesium Ferritin Vitamin B12 Folate Free T4 TSH 3rd Generation Hepatitis A IgM Ab Hep Bs Antigen Hep B Core IgM Ab Hepatitis C Antibody HIV 1&2 Antibody Screen Negative Infectious [place] Assay 03/14/17 03/14/17 03/14/17 14:24 14:24 14:24 WBC RBC Hgb Hct MCV MCH MCHC RDW Plt Count MPV Neut % (Auto) Lymph % (Auto) [place] % (Auto) Eos % (Auto) Baso % (Auto) Neut # Lymph # [place] # Eos # Baso # Total Counted Neutrophils % (Manual) Band Neutrophils % Lymphocytes % (Manual) Reactive Lymphs % Monocytes % (Manual) Eosinophils % (Manual) Basophils % (Manual) Metamyelocytes % Myelocytes % Promyelocytes % Blast Cells % Plasma Cell % (Manual) Nucleated RBC % Hypersegmented Polys Smudge Cells Toxic Granulation Dohle Bodies Gracia Rods Platelet Estimate Plt Clumps, EDTA Large Platelets Giant Platelets RBC Morphology Polychromasia Hypochromasia (manual) Poikilocytosis (manual Basophilic Stippling Anisocytosis (manual) Microcytosis (manual) Macrocytosis (manual) Spherocytes Sickle Cells Target Cells Tear Drop Cells Ovalocytes Stomatocytes Helmet Cells [place] Bodies [place] Cells Acanthocytes (Spur) Rouleaux Schistocytes Retic Count Sodium Potassium Chloride Carbon Dioxide Anion Gap BUN Creatinine Est GFR ( Amer) Est GFR (Non-Af Amer) Random Glucose Calcium Phosphorus Magnesium Ferritin 327.0 Vitamin B12 > 1000 H Folate 18.1 Free T4 1.20 TSH 3rd Generation 3.38 Hepatitis A IgM Ab Negative Hep Bs Antigen Negative Hep B Core IgM Ab Negative Hepatitis C Antibody Negative HIV 1&2 Antibody Screen Infectious [place] Assay 03/14/17 03/14/17 03/14/17 14:34 17:28 17:28 WBC 1.1 L* RBC 2.94 L Hgb 11.0 Hct 30.5 L MCV 103.6 H MCH 37.3 H MCHC 36.0 RDW 13.4 Plt Count 221 MPV 6.3 L Neut % (Auto) 33.7 L Lymph % (Auto) 38.2 [place] % (Auto) 25.6 H Eos % (Auto) 1.1 Baso % (Auto) 1.4 Neut # 0.4 L Lymph # 0.4 L [place] # 0.3 Eos # 0.0 Baso # 0.0 Total Counted Cancelled Neutrophils % (Manual) Cancelled Band Neutrophils % Cancelled Lymphocytes % (Manual) Cancelled Reactive Lymphs % Cancelled Monocytes % (Manual) Cancelled Eosinophils % (Manual) Cancelled Basophils % (Manual) Cancelled Metamyelocytes % Cancelled Myelocytes % Cancelled Promyelocytes % Cancelled Blast Cells % Cancelled Plasma Cell % (Manual) Cancelled Nucleated RBC % Cancelled Hypersegmented Polys Cancelled Smudge Cells Cancelled Toxic Granulation Cancelled Dohle Bodies Cancelled Gracia Rods Cancelled Platelet Estimate Cancelled Plt Clumps, EDTA Cancelled Large Platelets Cancelled Giant Platelets Cancelled RBC Morphology Cancelled Polychromasia Cancelled Hypochromasia (manual) Cancelled Poikilocytosis (manual Cancelled Basophilic Stippling Cancelled Anisocytosis (manual) Cancelled Microcytosis (manual) Cancelled Macrocytosis (manual) Cancelled Spherocytes Cancelled Sickle Cells Cancelled Target Cells Cancelled Tear Drop Cells Cancelled Ovalocytes Cancelled Stomatocytes Cancelled Helmet Cells Cancelled [place] Bodies Cancelled Leyla Cells Cancelled Acanthocytes (Spur) Cancelled Rouleaux Cancelled Schistocytes Cancelled Retic Count Sodium 121 L Potassium 3.2 L Chloride 86 L Carbon Dioxide 29 Anion Gap 9 L BUN 4 L Creatinine 0.7 Est GFR ( Amer) > 60 Est GFR (Non-Af Amer) > 60 Random Glucose 107 H Calcium 7.6 L Phosphorus 1.8 L Magnesium 1.3 L Ferritin Vitamin B12 Folate Free T4 TSH 3rd Generation Hepatitis A IgM Ab Hep Bs Antigen Hep B Core IgM Ab Hepatitis C Antibody HIV 1&2 Antibody Screen Infectious [place] Assay Negative Assessment & Plan - Assessment and Plan (Free Text) Assessment: Pt seen and examined, agree with Dr. Lozada's consult note. 56 year old female with a history of thyroid cancer s/p surgery and EBRT 3 years ago, admitted with back pain, found to be neutropenic and anemic. Elevated MCV and monocytosis noted. F/u TSH, HIV and hepatitis panel. F/u anemia w/u. Does not require neutropenic precautions at this point. ? MDS; May need outpatient bone marrow evaluation depending on blood work. Thank you for this interesting consult.
--- NOTE | 2017-03-14 11:15 | CARD ---
APPROVED REPORT EKG Measurement Heart [id number] <Conclusion> Normal sinus rhythm Rightward axis Incomplete right bundle branch block Anteroseptal infarct, age undetermined Abnormal ECG
[2017-03-14 12:27] LABS: BLOOD UREA NITROGEN 4 mg/dL (7-17); GFR AFRICAN-AMERICAN > 60; GFR NON-AFRICAN AMERICAN > 60
[2017-03-14] MEDS: Petrolatum Oint Foilpak (5 gm) TOP SCH ×2 (14:00→17:31)
[2017-03-14 14:39] LABS: BASO % 1.4 % (0.0-2.0); EOS % 1.1 % (0.0-4.0); LYMPH # 0.4 K/uL (1.0-4.3); LYMPH % 38.2 % (20.0-40.0); MEAN CELL VOLUME 103.6 fL (81.0-99.0); MEAN CORPUSCULAR HEMOGLOBIN 37.3 pg (27.0-31.0); MEAN PLATELET VOLUME 6.3 fL (7.2-11.7); MONO # 0.3 K/uL (0.0-0.8); MONO % 25.6 % (0.0-10.0); NEUT # 0.4 K/uL (1.8-7.0); NEUT % 33.7 % (50.0-75.0); NRBC % 0.3 % (0.0-2.0); RBC 2.94 Mil/uL (3.80-5.20); RED CELL DISTRIBUTION WIDTH 13.4 % (11.5-14.5)
[2017-03-14 14:42] LABS: WHITE BLOOD COUNT 1.1 K/uL (4.8-10.8)
[2017-03-14] MEDS: Potassium Chloride 20 mEq ER Tab PO SCH (15:31)
[2017-03-14 15:44] LABS: HEPATITIS B SURFACE AG NEGATIVE (NEGATIVE)
--- NOTE | 2017-03-14 15:49 | CP.PCM.PN ---
Subjective - Date & Time of Evaluation Date of Evaluation: 03/14/17 Time of Evaluation: 15:49 Objective - Vital Signs/Intake and Output Vital Signs (last 24 hours): Temp Pulse Resp BP Pulse Ox 98.0 F 68 20 164/90 H 98 03/14/17 08:00 03/14/17 08:00 03/14/17 08:00 03/14/17 08:00 03/14/17 08:00 Intake and Output: 03/14/17 03/14/17 06:59 18:59 Intake Total 650 Balance 650 - Medications Medications: Current Medications Amlodipine Besylate (Norvasc) 5 mg PO DAILY [facility] Last Admin: 03/14/17 12:20 Dose: 5 mg Cyclobenzaprine HCl (Flexeril) 5 mg PO DAILY [facility] Last Admin: 03/14/17 09:06 Dose: 5 mg Diclofenac Sodium (Voltaren) 75 mg PO BID [facility] Last Admin: 03/14/17 09:19 Dose: Not Given Emollient Ointment (Vaseline Oint) 5 gm TOP TID [facility] Last Admin: 03/14/17 14:00 Dose: Not Given Enoxaparin Sodium (Lovenox) 30 mg SC DAILY [facility] Last Admin: 03/14/17 09:05 Dose: 30 mg Gabapentin (Neurontin) 300 mg PO TID [facility] Last Admin: 03/14/17 13:59 Dose: 300 mg Home Med (Patient's Own Medication) 500 tab PO TID [facility] Stop: 03/15/17 14:01 Last Admin: 03/14/17 13:59 Dose: 500 tab Sodium Chloride (Sodium Chloride 0.9%) 1,000 mls @ 50 mls/hr IV .Q20H [facility] Last Admin: 03/13/17 21:24 Dose: 50 mls/hr Losartan Potassium (Cozaar) 100 mg PO DAILY [facility] Last Admin: 03/14/17 09:04 Dose: 100 mg Metoprolol Succinate (Toprol Xl) 100 mg PO DAILY [facility] Last Admin: 03/14/17 09:04 Dose: 100 mg Oxycodone/Acetaminophen (Percocet 5/325 Mg Tab) 1 tab PO QID [facility] Stop: 03/16/17 22:01 Last Admin: 03/14/17 13:59 Dose: 1 tab Potassium Chloride (K-Dur 20 Meq Er Tab) 40 meq PO DAILY [facility] Last Admin: 03/14/17 15:31 Dose: 40 meq - Labs Labs: 03/14/17 14:34 03/14/17 11:46
[2017-03-14 15:50] LABS: HEPATITIS A IGM NEGATIVE (NEGATIVE); HEPATITIS B CORE AB Negative (NEGATIVE)
[2017-03-14 16:02] LABS: HEPATITIS C ANTIBODY Negative (NEGATIVE)
--- NOTE | 2017-03-14 16:19 | CP.PCM.CON ---
History of Present Illness - History of Present Illness History of Present Illness: 56 year old AA female was admitted on 03/13/17 for generalized weakness and cough for 1 week. C/C is the leg pain radiating from her back, which does not allow her to walk. Patient was found to have low leukocytes during lab work in the ED. Referred for ID eval for this PMHx: thyroid cancer, sciatica, low back pain, HTN and anemia as a child. Allergies: NKDA Surgical Hx: neck mass surgery, lymph node surgery in 2013. R shoulder surgery. Family Hx: denies family history of cancers Social Hx: smokes 1 cigaret a day. Social alcohol use. Denies drug use. Review of Systems - Constitutional Constitutional: As Per HPI - EENT Eyes: absent: As Per HPI, Blind Spots, Blurred Vision, Change in Vision, Decreased Night Vision, Diplopia, Discharge, Dry Eye, Exophthalmos, Floaters, Irritation, Itchy Eyes, Loss of Peripheral Vision, Pain, Photophobia, Requires Corrective Lenses, Sees Flashes, Spots in Vision, Tunnel Vision, Other Visual Disturbances, Loss of Vision, Other Ears: absent: As Per HPI, Decreased Hearing, Ear Discharge, Ear Pain, Tinnitus, Abnormal Hearing, Disequilibrium, Dizziness, Other Nose/Mouth/Throat: absent: As Per HPI, Epistaxis, Nasal Congestion, Nasal Discharge, Nasal Obstruction, Nasal Trauma, Nose Pain, Post Nasal Drip, Sinus Pain, Sinus Pressure, Bleeding Gums, Change in Voice, Dental Pain, Dry Mouth, Dysphagia, Halitosis, Hoarsness, Lip Swelling, Mouth Lesions, Mouth Pain, Odynophagia, Sore Throat, Throat Swelling, Tongue Swelling, Facial Pain, Neck Pain, Neck Mass, Other - Breasts Breasts: absent: As Per HPI, Change in Shape, Mass, Pain, Nipple Discharge, Nipple Inversion, Skin Changes, Swelling, Other - Cardiovascular Cardiovascular: absent: As Per HPI, Acrocyanosis, Chest Pain, Chest Pain at Rest , Chest Pain with Activity, Claudication, Diaphoresis, Dyspnea, Dyspnea on Exertion, Edema, Irregular Heart Rhythm, Pain Radiating to Arm/Neck/Jaw, Leg Edema, Leg Ulcers, Lightheadedness, Orthopnea, Palpitations, Paroxysmal Nocturnal Dyspnea, Pedal Edema, Radiating Pain, Rapid Heart Rate, Slow Heart Rate, Syncope, Other - Respiratory Respiratory: absent: As Per HPI, Cough, Dyspnea, Hemoptysis, Dyspnea on Exertion , Wheezing, Snoring, Stridor, Pain on Inspiration, Chest Congestion, Excessive Mucous Production, Change in Mucous Color, Pain with Coughing, Other - Gastrointestinal Gastrointestinal: absent: As Per HPI, Abdominal Pain, Belching, Bloating, Change in Bowel Habits, Change in Stool Character, Coffee Ground Emesis, Constipation, Cramping, Diarrhea, Dyspepsia, Dysphagia, Early Satiety, Excessive Flatus, Fecal Incontinence, Heartburn, Hematemesis, Hematochezia, Loose Stools, Melena, Nausea, Odynophagia, Temesmus, Vomiting, Other - Genitourinary Genitourinary: absent: As Per HPI, Change in Urinary Stream, Difficulty Urinating, Dysuria, Flank Pain, Hematuria, Pyuria, Nocturia, Urinary Incontinence, Urinary Frequency, Urinary Hesitance, Urinary Urgency, Voiding Freq/Small Amts, Freq UTI, Hx Renal/Bladder Calculi, Hx /Renal Surgery, Bladder Distension, Other - Reproductive: Female Reproductive:Female: absent: As Per HPI, Amenorrhea, Amenorrhea/ Control, Currently Menstual, Cycle <21 Days, Cycle >35 Days, Cycle Variable, Menses 1-7 Days, Menses >/= 8 Days, Menses Variable, Cycle > 4 Weeks Between, No Menses for 6 Months, Heavy Menses, Light Menses, Normal Menses, Spotting Between Cycles , S/P Hysterectomy, Menopausal, Post Menopausal, Premenarche, Abnormal Vaginal Bleeding, Dysmenorrhea, Dyspareunia, Genital Lesions, Genital Pruritis, Pelvic Pain, Prolapse Symptoms, Sexual Dysfunction, Vaginal Discharge, Vaginal Dryness , Vaginal Odor, Vaginal Pruritis, Other - Menstruation Menstruation: absent: As Per HPI, Amenorrhea, Amenorrhea/ Control, Currently Menstual, Cycle <21 Days, Cycle >35 Days, Cycle Variable, Menses 1-7 Days, Menses >/= 8 Days, Menses Variable, Cycle > 4 Weeks Between, No Menses for 6 Months, Heavy Menses, Light Menses, Normal Menses, Spotting Between Cycles , S/P Hysterectomy, Menopausal, Post Menopausal, Premenarche, Abnormal Vaginal Bleeding, Dysmenorrhea, Other - Musculoskeletal Musculoskeletal: As Per HPI - Integumentary Integumentary: absent: As Per HPI, Acne, Alopecia, Bleeding Lesions, Change in Hair, Change in Nails, Change in Pigmentation, Changing Lesions, Dry Skin, Erythema, Furuncle, Hirsutism, Lesions, New Lesions, Non-Healing Lesions, Photosensitivity, Pruritus, Rash, Skin Pain, Skin Ulcer, Sores, Striae, Swelling , Unusual Bruising, Wounds, Jaundice, Other - Neurological Neurological: As Per HPI - Psychiatric Psychiatric: absent: As Per HPI, Abnormal Sleep Pattern, Anhedonia, Anxiety, Auditory Hallucinations, Behavioral Changes, Change in Appetite, Change in Libido, Confusion, Depression, Difficulty Concentrating, Hallucinations, Homicidal Ideation, Hopelessness, Irritability, Memory Loss, Mood Swings, Panic Attacks, Paranoia, Suicidal Ideation, Visual Hallucinations, Tactile Hallucinations, Other - Endocrine Endocrine: absent: As Per HPI, Change in Body Appearance, Change in Libido, Cold Intolorance, Deepening of Voice, Excessive Sweating, Fatigue, Flushing, Heat Intolorance, Increase in Ring/Shoe/Hat Size, Palpitations, Polydipsia, Polyphagia, Polyuria, Other - Hematologic/Lymphatic Hematologic: absent: As Per HPI, Easy Bleeding, Easy Bruising, Lymphadenopathy, Other Past Patient History - Past Medical History & Family History Past Medical History?: Yes - Past Social History Smoking Status: Former Smoker - CARDIAC Hx Hypertension: Yes - PULMONARY Hx Respiratory Disorders: No - NEUROLOGICAL Hx Neurological Disorder: No - HEENT Hx HEENT Problems: Yes Other/Comment: PALATIAL EDEMA - RENAL Hx Chronic Kidney Disease: No - ENDOCRINE/METABOLIC Hx Endocrine Disorders: No - HEMATOLOGICAL/ONCOLOGICAL Hx Blood Disorders: No - INTEGUMENTARY Hx Dermatological Problems: No - MUSCULOSKELETAL/RHEUMATOLOGICAL Hx Musculoskeletal Disorders: Yes Other/Comment: SCIATICA - GASTROINTESTINAL Hx Gastrointestinal Disorders: Yes - GENITOURINARY/GYNECOLOGICAL Hx Genitourinary Disorders: No - PSYCHIATRIC Hx Substance Use: No - SURGICAL HISTORY Hx Surgeries: Yes Other/Comment: NECK BIOPSY, HX OF REMOVAL OF TONSIL AND LYMPH NODE 2014. states she has cancer - thyroid area - ANESTHESIA Hx Anesthesia: Yes Hx Anesthesia Reactions: No Hx Malignant Hyperthermia: No Meds Allergies/Adverse Reactions: Allergies Allergy/AdvReac Type Severity Reaction Status Date / Time No Known Allergies Allergy Verified 03/13/17 11:41 - Medications Medications: Current Medications Amlodipine Besylate (Norvasc) 5 mg PO DAILY [facility] Last Admin: 03/14/17 12:20 Dose: 5 mg Cyclobenzaprine HCl (Flexeril) 5 mg PO DAILY [facility] Last Admin: 03/14/17 09:06 Dose: 5 mg Diclofenac Sodium (Voltaren) 75 mg PO BID [facility] Last Admin: 03/14/17 09:19 Dose: Not Given Emollient Ointment (Vaseline Oint) 5 gm TOP TID [facility] Last Admin: 03/14/17 14:00 Dose: Not Given Enoxaparin Sodium (Lovenox) 30 mg SC DAILY [facility] Last Admin: 03/14/17 09:05 Dose: 30 mg Gabapentin (Neurontin) 300 mg PO TID [facility] Last Admin: 03/14/17 13:59 Dose: 300 mg Home Med (Patient's Own Medication) 500 tab PO TID [facility] Stop: 03/15/17 14:01 Last Admin: 03/14/17 13:59 Dose: 500 tab Sodium Chloride (Sodium Chloride 0.9%) 1,000 mls @ 50 mls/hr IV .Q20H [facility] Last Admin: 03/13/17 21:24 Dose: 50 mls/hr Losartan Potassium (Cozaar) 100 mg PO DAILY [facility] Last Admin: 03/14/17 09:04 Dose: 100 mg Metoprolol Succinate (Toprol Xl) 100 mg PO DAILY [facility] Last Admin: 03/14/17 09:04 Dose: 100 mg Oxycodone/Acetaminophen (Percocet 5/325 Mg Tab) 1 tab PO QID [facility] Stop: 03/16/17 22:01 Last Admin: 03/14/17 13:59 Dose: 1 tab Potassium Chloride (K-Dur 20 Meq Er Tab) 40 meq PO DAILY [facility] Last Admin: 03/14/17 15:31 Dose: 40 meq Physical Exam - Constitutional Appears: Non-toxic, Chronically Ill - Head Exam Head Exam: NORMOCEPHALIC - Eye Exam Eye Exam: PERRL. absent: Scleral icterus Pupil Exam: NORMAL ACCOMODATION - ENT Exam ENT Exam: Mucous Membranes Dry, Normal External Ear Exam - Neck Exam Neck exam: Negative for: Lymphadenopathy, Thyromegaly - Respiratory Exam Respiratory Exam: Decreased Breath Sounds - Cardiovascular Exam Cardiovascular Exam: REGULAR RHYTHM - GI/Abdominal Exam GI & Abdominal Exam: Diminished Bowel Sounds, Soft. absent: Tenderness - Rectal Exam Rectal Exam: Deferred - Exam Exam: NORMAL INSPECTION - Extremities Exam Extremities exam: Positive for: pedal pulses present. Negative for: calf tenderness, pedal edema, tenderness - Back Exam Back exam: absent: CVA tenderness (L), CVA tenderness (R), paraspinal tenderness - Neurological Exam Neurological exam: Alert, CN II-XII Intact, Oriented x3 Additional comments: pain RLE - Psychiatric Exam Psychiatric exam: Anxious - Skin Skin Exam: Dry Results - Vital Signs Recent Vital Signs: Last Vital Signs Temp 98.0 F 03/14/17 08:00 Pulse 68 03/14/17 08:00 Resp 20 03/14/17 08:00 BP 164/90 H 03/14/17 08:00 Pulse Ox 98 03/14/17 08:00 - Labs Result Diagrams: 03/14/17 14:34 03/14/17 11:46 Labs: Laboratory Results - last 24 hr 03/14/17 03/14/17 03/14/17 11:46 11:46 14:24 WBC RBC Hgb Hct MCV MCH MCHC RDW Plt Count MPV Neut % (Auto) Lymph % (Auto) [place] % (Auto) Eos % (Auto) Baso % (Auto) Neut # Lymph # [place] # Eos # Baso # Total Counted Neutrophils % (Manual) Band Neutrophils % Lymphocytes % (Manual) Reactive Lymphs % Monocytes % (Manual) Eosinophils % (Manual) Basophils % (Manual) Metamyelocytes % Myelocytes % Promyelocytes % Blast Cells % Plasma Cell % (Manual) Nucleated RBC % Hypersegmented Polys Smudge Cells Toxic Granulation Dohle Bodies Gracia Rods Platelet Estimate Plt Clumps, EDTA Large Platelets Giant Platelets RBC Morphology Polychromasia Hypochromasia (manual) Poikilocytosis (manual Basophilic Stippling Anisocytosis (manual) Microcytosis (manual) Macrocytosis (manual) Spherocytes Sickle Cells Target Cells Tear Drop Cells Ovalocytes Stomatocytes Helmet Cells Woodard-Raeford Bodies [place] Cells Acanthocytes (Spur) Rouleaux Schistocytes Retic Count 0.5 Sodium 123 L Potassium 3.2 L Chloride 86 L Carbon Dioxide 30 Anion Gap 10 BUN 4 L Creatinine 0.8 Est GFR ( Amer) > 60 Est GFR (Non-Af Amer) > 60 Random Glucose 91 Calcium 8.0 L Ferritin Free T4 TSH 3rd Generation Hepatitis A IgM Ab Hep Bs Antigen Hep B Core IgM Ab Hepatitis C Antibody HIV 1&2 Antibody Screen Negative 03/14/17 03/14/17 03/14/17 14:24 14:24 14:24 WBC RBC Hgb Hct MCV MCH MCHC RDW Plt Count MPV Neut % (Auto) Lymph % (Auto) [place] % (Auto) Eos % (Auto) Baso % (Auto) Neut # Lymph # [place] # Eos # Baso # Total Counted Neutrophils % (Manual) Band Neutrophils % Lymphocytes % (Manual) Reactive Lymphs % Monocytes % (Manual) Eosinophils % (Manual) Basophils % (Manual) Metamyelocytes % Myelocytes % Promyelocytes % Blast Cells % Plasma Cell % (Manual) Nucleated RBC % Hypersegmented Polys Smudge Cells Toxic Granulation Dohle Bodies Gracia Rods Platelet Estimate Plt Clumps, EDTA Large Platelets Giant Platelets RBC Morphology Polychromasia Hypochromasia (manual) Poikilocytosis (manual Basophilic Stippling Anisocytosis (manual) Microcytosis (manual) Macrocytosis (manual) Spherocytes Sickle Cells Target Cells Tear Drop Cells Ovalocytes Stomatocytes Helmet Cells Woodard-Raef[place] Bodies Leyla Cells Acanthocytes (Spur) Rouleaux Schistocytes Retic Count Sodium Potassium Chloride Carbon Dioxide Anion Gap BUN Creatinine Est GFR ( Amer) Est GFR (Non-Af Amer) Random Glucose Calcium Ferritin 327.0 Free T4 1.20 TSH 3rd Generation 3.38 Hepatitis A IgM Ab Negative Hep Bs Antigen Negative Hep B Core IgM Ab Negative Hepatitis C Antibody Negative HIV 1&2 Antibody Screen 03/14/17 14:34 WBC 1.1 L* RBC 2.94 L Hgb 11.0 Hct 30.5 L MCV 103.6 H MCH 37.3 H MCHC 36.0 RDW 13.4 Plt Count 221 MPV 6.3 L Neut % (Auto) 33.7 L Lymph % (Auto) 38.2 [place] % (Auto) 25.6 H Eos % (Auto) 1.1 Baso % (Auto) 1.4 Neut # 0.4 L Lymph # 0.4 L [place] # 0.3 Eos # 0.0 Baso # 0.0 Total Counted Cancelled Neutrophils % (Manual) Cancelled Band Neutrophils % Cancelled Lymphocytes % (Manual) Cancelled Reactive Lymphs % Cancelled Monocytes % (Manual) Cancelled Eosinophils % (Manual) Cancelled Basophils % (Manual) Cancelled Metamyelocytes % Cancelled Myelocytes % Cancelled Promyelocytes % Cancelled Blast Cells % Cancelled Plasma Cell % (Manual) Cancelled Nucleated RBC % Cancelled Hypersegmented Polys Cancelled Smudge Cells Cancelled Toxic Granulation Cancelled Dohle Bodies Cancelled Gracia Rods Cancelled Platelet Estimate Cancelled Plt Clumps, EDTA Cancelled Large Platelets Cancelled Giant Platelets Cancelled RBC Morphology Cancelled Polychromasia Cancelled Hypochromasia (manual) Cancelled Poikilocytosis (manual Cancelled Basophilic Stippling Cancelled Anisocytosis (manual) Cancelled Microcytosis (manual) Cancelled Macrocytosis (manual) Cancelled Spherocytes Cancelled Sickle Cells Cancelled Target Cells Cancelled Tear Drop Cells Cancelled Ovalocytes Cancelled Stomatocytes Cancelled Helmet Cells Cancelled Woodard-Raeford Bodies Cancelled Leyla Cells Cancelled Acanthocytes (Spur) Cancelled Rouleaux Cancelled Schistocytes Cancelled Retic Count Sodium Potassium Chloride Carbon Dioxide Anion Gap BUN Creatinine Est GFR ( Amer) Est GFR (Non-Af Amer) Random Glucose Calcium Ferritin Free T4 TSH 3rd Generation Hepatitis A IgM Ab Hep Bs Antigen Hep B Core IgM Ab Hepatitis C Antibody HIV 1&2 Antibody Screen Assessment & Plan (1) Anemia Status: Acute (2) Leukopenia Status: Acute (3) Lumbar radiculopathy Status: Acute (4) UTI (urinary tract infection) Status: Acute - Assessment and Plan (Free Text) Assessment: severe neutropenia pain in lower back radiating to leg r/o occult infection r/o malignancy - lymphoma ? leukemia? myeloma? afebrile at present cultures sent needs MRI LS Spine
[2017-03-14 16:21] LABS: FOLATE 18.1 ng/mL
--- NOTE | 2017-03-14 16:41 | CP.PCM.CON ---
History of Present Illness - History of Present Illness History of Present Illness: Initial Nephrology Consultation: Assessment: critical Hypo-osmolar hyponatremia likely multifactorial: decreased oral intake, HCTZ, stimulation of ADH by pain, vomiting. also possible SIADH due to ? occult malignancy Hypokalemia Neutropenia, anemia hx of thyroid cancer, sciatica, low back pain, HTN Plan No acute need for renal replacement therapy at this time. Hypertension control with meds as ordered. Patient on ARB. agree to d/c thiazide diuretics. will add norvasc 5 mg/day heme/onc work up continue with IVF as NS @ 75 ml/hr and supplement potassium. while on IVF, will also restrict her free water intake. avoid correction in serum Na >6-8 meq/24 hr. no need for hypertonic saline at this time. may consider tolvaptan if no impromevent in serum Na with these measures. Monitor Na level. Check urine analysis, urine Na/osmol Glycemic and pain control Further work up/management as per primary team Thanks for allowing me to participate in care of your patient. Will follow patient with you. Please call if any Qs. d/w son and team Dr Yury Jalloh Office: [phone] Chief Complaint; backpain HPI: Pt is a 56 F with hx of thyroid cancer, sciatica, low back pain, HTN and anemia presented with complaints of decreased oral intake for last 3 days and worsening low back pain radiating to leg. renal consult for Hyponatremia. she has been on HCTZ. also had episodes of vomiting. Denies OTC/herbal meds or NSAIDs denies drug abuse, psych meds. smokes. drink beer once a week on fridays had wt loss at time of thyroid cancer few years ago, says never gained back reports difficulty in swallowing for long time ROS: Cardiovascular: No chest pain. Pulmonary: No shortness of breath Gastrointestinal: denies abdominal pain No nausea. c/o vomiting. Genitourinary: No pain while urinating. Denies blood in urine. All other negative except as mentioned in HPI Physical Examination: General Appearance: Comfortable, in no acute respiratory distress, co-operative . ill appearing, cachexic Vitals reviewed and noted as below Head; Atraumatic, normocephalic ENT: no ulcers no thrush. Tongue is midline/dry. Oropharynx: no rash or ulcers. EYES: Pupils are equal, round and reactive to light accommodation. Eye muscles and extraocular movement intact. Sclera is anicteric. Neck; supple no lymphadenopathy, no thyromegaly or bruit. scarring in skin noted Lungs: Normal respiratory rate/effort. Breath sounds bilateral equal and clear Heart: Normal rate. s1s2 normal. No rub or gallop. Extremities: no edema. No varicose veins Neurological: Patient is alert, awake and oriented to person, place and time. No focal deficit. Strength bilateral appropriate and equal Skin: Warm and dry. Normal turgor. No rash. Palpitation: Normal elasticity for age Abdomen: Abdomen is soft. Bowel sounds +. There is no abdominal tenderness, no guarding/rigidity no organomegaly Psych: normal insight and normal affect/mood MSK: no joint tenderness or swelling. Digits and nails normal, no deformity : kidney or bladder not palpable Labs/imaging reviewed. Past medical history, past surgical history, family history, social history, allergy reviewed and noted as below Family hx: no hx of CKD. Rest non-contributory work up: serum osmol 265 urine Na 74 urine Osmol 304 Past Patient History - Past Medical History & Family History Past Medical History?: Yes - Past Social History Smoking Status: Former Smoker - CARDIAC Hx Hypertension: Yes - PULMONARY Hx Respiratory Disorders: No - NEUROLOGICAL Hx Neurological Disorder: No - HEENT Hx HEENT Problems: Yes Other/Comment: PALATIAL EDEMA - RENAL Hx Chronic Kidney Disease: No - ENDOCRINE/METABOLIC Hx Endocrine Disorders: No - HEMATOLOGICAL/ONCOLOGICAL Hx Blood Disorders: No - INTEGUMENTARY Hx Dermatological Problems: No - MUSCULOSKELETAL/RHEUMATOLOGICAL Hx Musculoskeletal Disorders: Yes Other/Comment: SCIATICA - GASTROINTESTINAL Hx Gastrointestinal Disorders: Yes - GENITOURINARY/GYNECOLOGICAL Hx Genitourinary Disorders: No - PSYCHIATRIC Hx Substance Use: No - SURGICAL HISTORY Hx Surgeries: Yes Other/Comment: NECK BIOPSY, HX OF REMOVAL OF TONSIL AND LYMPH NODE 2013. states she has cancer - thyroid area - ANESTHESIA Hx Anesthesia: Yes Hx Anesthesia Reactions: No Hx Malignant Hyperthermia: No Meds Allergies/Adverse Reactions: Allergies Allergy/AdvReac Type Severity Reaction Status Date / Time No Known Allergies Allergy Verified 03/13/17 11:41 - Medications Medications: Current Medications Amlodipine Besylate (Norvasc) 5 mg PO DAILY [facility] Last Admin: 03/14/17 12:20 Dose: 5 mg Cyclobenzaprine HCl (Flexeril) 5 mg PO DAILY [facility] Last Admin: 03/14/17 09:06 Dose: 5 mg Diclofenac Sodium (Voltaren) 75 mg PO BID [facility] Last Admin: 03/14/17 09:19 Dose: Not Given Emollient Ointment (Vaseline Oint) 5 gm TOP TID [facility] Last Admin: 03/14/17 14:00 Dose: Not Given Enoxaparin Sodium (Lovenox) 30 mg SC DAILY [facility] Last Admin: 03/14/17 09:05 Dose: 30 mg Gabapentin (Neurontin) 300 mg PO TID [facility] Last Admin: 03/14/17 13:59 Dose: 300 mg Home Med (Patient's Own Medication) 500 tab PO TID [facility] Stop: 03/15/17 14:01 Last Admin: 03/14/17 13:59 Dose: 500 tab Sodium Chloride (Sodium Chloride 0.9%) 1,000 mls @ 50 mls/hr IV .Q20H [facility] Last Admin: 03/13/17 21:24 Dose: 50 mls/hr Losartan Potassium (Cozaar) 100 mg PO DAILY [facility] Last Admin: 03/14/17 09:04 Dose: 100 mg Metoprolol Succinate (Toprol Xl) 100 mg PO DAILY [facility] Last Admin: 03/14/17 09:04 Dose: 100 mg Oxycodone/Acetaminophen (Percocet 5/325 Mg Tab) 1 tab PO QID [facility] Stop: 03/16/17 22:01 Last Admin: 03/14/17 13:59 Dose: 1 tab Potassium Chloride (K-Dur 20 Meq Er Tab) 40 meq PO DAILY [facility] Last Admin: 03/14/17 15:31 Dose: 40 meq Results - Vital Signs Recent Vital Signs: Last Vital Signs Temp 98.0 F 03/14/17 08:00 Pulse 68 03/14/17 08:00 Resp 20 03/14/17 08:00 BP 164/90 H 03/14/17 08:00 Pulse Ox 98 03/14/17 08:00 - Labs Result Diagrams: 03/14/17 14:34 03/14/17 11:46 Labs: Laboratory Results - last 24 hr 03/14/17 03/14/17 03/14/17 11:46 11:46 14:24 WBC RBC Hgb Hct MCV MCH MCHC RDW Plt Count MPV Neut % (Auto) Lymph % (Auto) [place] % (Auto) Eos % (Auto) Baso % (Auto) Neut # Lymph # [place] # Eos # Baso # Total Counted Neutrophils % (Manual) Band Neutrophils % Lymphocytes % (Manual) Reactive Lymphs % Monocytes % (Manual) Eosinophils % (Manual) Basophils % (Manual) Metamyelocytes % Myelocytes % Promyelocytes % Blast Cells % Plasma Cell % (Manual) Nucleated RBC % Hypersegmented Polys Smudge Cells Toxic Granulation Dohle Bodies Gracia Rods Platelet Estimate Plt Clumps, EDTA Large Platelets Giant Platelets RBC Morphology Polychromasia Hypochromasia (manual) Poikilocytosis (manual Basophilic Stippling Anisocytosis (manual) Microcytosis (manual) Macrocytosis (manual) Spherocytes Sickle Cells Target Cells Tear Drop Cells Ovalocytes Stomatocytes Helmet Cells [place] Bodies [place] Cells Acanthocytes (Spur) Rouleaux Schistocytes Retic Count 0.5 Sodium 123 L Potassium 3.2 L Chloride 86 L Carbon Dioxide 30 Anion Gap 10 BUN 4 L Creatinine 0.8 Est GFR ( Amer) > 60 Est GFR (Non-Af Amer) > 60 Random Glucose 91 Calcium 8.0 L Ferritin Vitamin B12 Folate Free T4 TSH 3rd Generation Hepatitis A IgM Ab Hep Bs Antigen Hep B Core IgM Ab Hepatitis C Antibody HIV 1&2 Antibody Screen Negative 03/14/17 03/14/17 03/14/17 14:24 14:24 14:24 WBC RBC Hgb Hct MCV MCH MCHC RDW Plt Count MPV Neut % (Auto) Lymph % (Auto) [place] % (Auto) Eos % (Auto) Baso % (Auto) Neut # Lymph # [place] # Eos # Baso # Total Counted Neutrophils % (Manual) Band Neutrophils % Lymphocytes % (Manual) Reactive Lymphs % Monocytes % (Manual) Eosinophils % (Manual) Basophils % (Manual) Metamyelocytes % Myelocytes % Promyelocytes % Blast Cells % Plasma Cell % (Manual) Nucleated RBC % Hypersegmented Polys Smudge Cells Toxic Granulation Dohle Bodies Gracia Rods Platelet Estimate Plt Clumps, EDTA Large Platelets Giant Platelets RBC Morphology Polychromasia Hypochromasia (manual) Poikilocytosis (manual Basophilic Stippling Anisocytosis (manual) Microcytosis (manual) Macrocytosis (manual) Spherocytes Sickle Cells Target Cells Tear Drop Cells Ovalocytes Stomatocytes Helmet Cells [place] Bodies [place] Cells Acanthocytes (Spur) Rouleaux Schistocytes Retic Count Sodium Potassium Chloride Carbon Dioxide Anion Gap BUN Creatinine Est GFR ( Amer) Est GFR (Non-Af Amer) Random Glucose Calcium Ferritin 327.0 Vitamin B12 > 1000 H Folate 18.1 Free T4 1.20 TSH 3rd Generation 3.38 Hepatitis A IgM Ab Negative Hep Bs Antigen Negative Hep B Core IgM Ab Negative Hepatitis C Antibody Negative HIV 1&2 Antibody Screen 03/14/17 14:34 WBC 1.1 L* RBC 2.94 L Hgb 11.0 Hct 30.5 L MCV 103.6 H MCH 37.3 H MCHC 36.0 RDW 13.4 Plt Count 221 MPV 6.3 L Neut % (Auto) 33.7 L Lymph % (Auto) 38.2 [place] % (Auto) 25.6 H Eos % (Auto) 1.1 Baso % (Auto) 1.4 Neut # 0.4 L Lymph # 0.4 L [place] # 0.3 Eos # 0.0 Baso # 0.0 Total Counted Cancelled Neutrophils % (Manual) Cancelled Band Neutrophils % Cancelled Lymphocytes % (Manual) Cancelled Reactive Lymphs % Cancelled Monocytes % (Manual) Cancelled Eosinophils % (Manual) Cancelled Basophils % (Manual) Cancelled Metamyelocytes % Cancelled Myelocytes % Cancelled Promyelocytes % Cancelled Blast Cells % Cancelled Plasma Cell % (Manual) Cancelled Nucleated RBC % Cancelled Hypersegmented Polys Cancelled Smudge Cells Cancelled Toxic Granulation Cancelled Dohle Bodies Cancelled Gracia Rods Cancelled Platelet Estimate Cancelled Plt Clumps, EDTA Cancelled Large Platelets Cancelled Giant Platelets Cancelled RBC Morphology Cancelled Polychromasia Cancelled Hypochromasia (manual) Cancelled Poikilocytosis (manual Cancelled Basophilic Stippling Cancelled Anisocytosis (manual) Cancelled Microcytosis (manual) Cancelled Macrocytosis (manual) Cancelled Spherocytes Cancelled Sickle Cells Cancelled Target Cells Cancelled Tear Drop Cells Cancelled Ovalocytes Cancelled Stomatocytes Cancelled Helmet Cells Cancelled [place] Bodies Cancelled Leyla Cells Cancelled Acanthocytes (Spur) Cancelled Rouleaux Cancelled Schistocytes Cancelled Retic Count Sodium Potassium Chloride Carbon Dioxide Anion Gap BUN Creatinine Est GFR ( Amer) Est GFR (Non-Af Amer) Random Glucose Calcium Ferritin Vitamin B12 Folate Free T4 TSH 3rd Generation Hepatitis A IgM Ab Hep Bs Antigen Hep B Core IgM Ab Hepatitis C Antibody HIV 1&2 Antibody Screen
[2017-03-14] MEDS: Sodium Chloride 0.9% 1,000 ML IV SCH (17:31)
[2017-03-14 17:51] LABS: BLOOD UREA NITROGEN 4 mg/dL (7-17); CALCIUM 7.6 mg/dl (8.6-10.4); GFR AFRICAN-AMERICAN > 60; GFR NON-AFRICAN AMERICAN > 60; MAGNESIUM 1.3 mg/dL (1.6-2.3)
[2017-03-14] MEDS: Magnesium Sulfate 1 gm in D5W 1 GM/100 ML BAG IVPB SCH ×2 (19:00→19:40)
[2017-03-14] MEDS: Potassium & Sodium Phosphate PO SCH (21:00)
[2017-03-14 22:38] LABS: SQUAMOUS EPITHIAL < 1 /hpf (0-5); URINE BACTERIA RARE (<OCC); URINE BILIRUBIN NEGATIVE (NEGATIVE); URINE BLOOD NEGATIVE (NEGATIVE); URINE CLARITY Clear (Clear); URINE COLOR Straw (YELLOW); URINE GLUCOSE (UA) 1+ mg/dL (Normal); URINE LEUKOCYTE ESTERASE NEG Leu/uL (Negative); URINE NITRATE NEGATIVE (NEGATIVE); URINE PROTEIN NEGATIVE (NEGATIVE)
[2017-03-15 08:18] LABS: EOS % 2.5 % (0.0-4.0); HEMOGLOBIN 10.9 g/dL (11.0-16.0); LYMPH # 0.4 K/uL (1.0-4.3); LYMPH % 40.3 % (20.0-40.0); MEAN CORPUSCULAR HEMOGLOBIN 36.7 pg (27.0-31.0); MEAN CORPUSCULAR HGB CONC 35.3 g/dL (33.0-37.0); MEAN PLATELET VOLUME 6.1 fL (7.2-11.7); MONO # 0.2 K/uL (0.0-0.8); MONO % 19.6 % (0.0-10.0); NEUT # 0.3 K/uL (1.8-7.0); NEUT % 37.6 % (50.0-75.0); NRBC % 0.2 % (0.0-2.0); RBC 2.97 Mil/uL (3.80-5.20); RED CELL DISTRIBUTION WIDTH 13.2 % (11.5-14.5)
[2017-03-15 08:30] LABS: ALB/GLOB RATIO 1.3 (1.0-2.1); ALBUMIN 3.3 g/dL (3.5-5.0); ALT/SGPT 32 U/L (9-52); AST/SGOT 42 U/L (14-36); BLOOD UREA NITROGEN 2 mg/dL (7-17); CALCIUM 7.4 mg/dl (8.6-10.4); GFR AFRICAN-AMERICAN > 60; GFR NON-AFRICAN AMERICAN > 60; MAGNESIUM 1.7 mg/dL (1.6-2.3); WHITE BLOOD COUNT 0.9 K/uL (4.8-10.8)
--- NOTE | 2017-03-15 11:02 | MRI ---
PROCEDURE: MR LUMBAR SPINE WITHOUT CONTRAST HISTORY: pain low back radiating to leg COMPARISON: None available. TECHNIQUE: Multiecho multiplanar sequences were performed through the lumbar spine without the use of intravenous contrast. FINDINGS: Normal lumbar lordosis. Vertebral body heights are preserved. Marrow signal unremarkable. Conus medullaris unremarkable at the level of L1 Paraspinal soft tissues are unremarkable. T12-L1: No disc herniation, spinal canal stenosis or neural foraminal narrowing. L1-2: No disc herniation, spinal canal stenosis or neural foraminal narrowing. L2-3: No disc herniation, spinal canal stenosis or neural foraminal narrowing. L3-4: Mild disc bulge. No disc herniation. Minimal bilateral neural foraminal stenosis. No central canal stenosis. Bilateral facet arthropathy. L4-5: Disc bulge. No focal disc herniation. Mild bilateral facet arthropathy. No foraminal stenosis. No central spinal stenosis. L5-S1: Broad-based right parasagittal disc herniation. This contacts the exiting right S1 nerve root. Please correlate clinically. No foraminal stenosis. Bilateral degenerative facet arthropathy noted. OTHER FINDINGS: None. IMPRESSION: Broad-based right parasagittal disc herniation L5-S1 contacting the exiting right S1 nerve root. Please correlate clinically. Disc bulge at L3-4 and L4-5. Minimal bilateral neural foraminal stenosis at L3-4. No additional abnormality.
[2017-03-15] MEDS: Oxycodone/Acetaminophen 5/325 mg Tab PO SCH ×4 (11:09→21:39)
[2017-03-15] MEDS: Potassium Chloride 20 mEq ER Tab PO SCH (11:10)
[2017-03-15] MEDS: Metoprolol Succinate 100 mg XL Tab PO SCH (11:10)
[2017-03-15] MEDS: Enoxaparin 30 mg Syringe SC SCH (11:12)
[2017-03-15] MEDS: Petrolatum Oint Foilpak (5 gm) TOP SCH ×3 (11:12→17:47)
[2017-03-15] MEDS: Potassium & Sodium Phosphate PO SCH ×3 (11:13→17:42)
[2017-03-15] MEDS: METHOCARBAMOL 500MG PO SCH ×2 (11:13→14:46)
[2017-03-15] MEDS: Diclofenac Sodium Delayed Release 75 mg EC Tab PO SCH (11:15)
[2017-03-15] MEDS: Potassium Chloride 20 mEq/15 ml LIQ UD PO SCH (11:41)
[2017-03-15] MEDS: Sodium Chloride 0.9% 1,000 ML IV SCH (14:47)
--- NOTE | 2017-03-15 15:09 | CP.PCM.PN ---
Subjective - Date & Time of Evaluation Date of Evaluation: 03/15/17 Time of Evaluation: 15:06 - Subjective Subjective: Assessment: critical Hypo-osmolar hyponatremia likely multifactorial: decreased oral intake, HCTZ, stimulation of ADH by pain, vomiting. also possible SIADH due to ? occult malignancy Hypokalemia Neutropenia anemia hx of thyroid cancer, sciatica, low back pain HTN Plan Na slowly improving appropriately. Will check q12 bmp asked rn to restrict 1.5 L fluid restrict can continue 0.9% Ns for now BP ok f/u onc w/u K improved Phos improved S: seen and examined, no complaints Physical Examination: General Appearance: Comfortable, in no acute respiratory distress, co-operative . ill appearing, cachexic Vitals reviewed and noted as below Head; Atraumatic, normocephalic ENT: no ulcers no thrush. Tongue is midline/dry. Oropharynx: no rash or ulcers. EYES: Pupils are equal, round and reactive to light accommodation. Eye muscles and extraocular movement intact. Sclera is anicteric. Neck; supple no lymphadenopathy, no thyromegaly or bruit. scarring in skin noted Lungs: Normal respiratory rate/effort. Breath sounds bilateral equal and clear Heart: Normal rate. s1s2 normal. No rub or gallop. Extremities: no edema. No varicose veins Neurological: Patient is alert, awake and oriented to person, place and time. No focal deficit. Strength bilateral appropriate and equal Skin: Warm and dry. Normal turgor. No rash. Palpitation: Normal elasticity for age Abdomen: Abdomen is soft. Bowel sounds +. There is no abdominal tenderness, no guarding/rigidity no organomegaly Psych: normal insight and normal affect/mood MSK: no joint tenderness or swelling. Digits and nails normal, no deformity : kidney or bladder not palpable Objective - Vital Signs/Intake and Output Vital Signs (last 24 hours): Temp Pulse Resp BP Pulse Ox 98.3 F 63 20 148/83 98 03/15/17 08:37 03/15/17 08:37 03/15/17 08:37 03/15/17 08:37 03/15/17 08:37 Intake and Output: 03/15/17 03/15/17 06:59 18:59 Intake Total 800 Balance 800 - Medications Medications: Current Medications Amlodipine Besylate (Norvasc) 5 mg PO DAILY [facility] Last Admin: 03/15/17 11:10 Dose: 5 mg Cyclobenzaprine HCl (Flexeril) 5 mg PO DAILY [facility] Last Admin: 03/15/17 11:16 Dose: 5 mg Diclofenac Sodium (Voltaren) 75 mg PO BID [facility] Last Admin: 03/15/17 11:15 Dose: 75 mg Emollient Ointment (Vaseline Oint) 5 gm TOP TID [facility] Last Admin: 03/15/17 14:46 Dose: Not Given Enoxaparin Sodium (Lovenox) 30 mg SC DAILY [facility] Last Admin: 03/15/17 11:12 Dose: 30 mg Gabapentin (Neurontin) 300 mg PO TID [facility] Last Admin: 03/15/17 14:44 Dose: 300 mg Sodium Chloride (Sodium Chloride 0.9%) 1,000 mls @ 75 mls/hr IV .[id number] [facility] Last Admin: 03/15/17 14:47 Dose: 75 mls/hr Losartan Potassium (Cozaar) 100 mg PO DAILY [facility] Last Admin: 03/15/17 11:10 Dose: 100 mg Metoprolol Succinate (Toprol Xl) 100 mg PO DAILY [facility] Last Admin: 03/15/17 11:10 Dose: 100 mg Oxycodone/Acetaminophen (Percocet 5/325 Mg Tab) 1 tab PO QID [facility] Stop: 03/16/17 22:01 Last Admin: 03/15/17 14:44 Dose: 1 tab Pneumococcal Polyvalent Vaccine (Pneumovax 23 Vaccine) 0.5 ml IM .ONCE ONE Stop: 03/16/17 10:01 Potassium Chloride (Potassium Chloride Oral Soln) 40 meq PO DAILY [facility] Last Admin: 03/15/17 11:41 Dose: 40 meq Potassium Phos/Sodium Phos (Neutra-Phos) 1 pkt PO TID [facility] Stop: 03/17/17 14:00 Last Admin: 03/15/17 14:45 Dose: 1 pkt - Labs Labs: 03/15/17 08:06 03/15/17 08:06
--- NOTE | 2017-03-15 15:52 | CP.PCM.PN ---
Subjective - Date & Time of Evaluation Date of Evaluation: 03/15/17 Time of Evaluation: 15:52 Objective - Vital Signs/Intake and Output Vital Signs (last 24 hours): Temp Pulse Resp BP Pulse Ox 98.3 F 63 20 148/83 98 03/15/17 08:37 03/15/17 08:37 03/15/17 08:37 03/15/17 08:37 03/15/17 08:37 Intake and Output: 03/15/17 03/15/17 06:59 18:59 Intake Total 800 Balance 800 - Medications Medications: Current Medications Amlodipine Besylate (Norvasc) 5 mg PO DAILY [facility] Last Admin: 03/15/17 11:10 Dose: 5 mg Cyclobenzaprine HCl (Flexeril) 5 mg PO DAILY [facility] Last Admin: 03/15/17 11:16 Dose: 5 mg Emollient Ointment (Vaseline Oint) 5 gm TOP TID [facility] Last Admin: 03/15/17 14:46 Dose: Not Given Enoxaparin Sodium (Lovenox) 30 mg SC DAILY [facility] Last Admin: 03/15/17 11:12 Dose: 30 mg Gabapentin (Neurontin) 300 mg PO TID [facility] Last Admin: 03/15/17 14:44 Dose: 300 mg Sodium Chloride (Sodium Chloride 0.9%) 1,000 mls @ 75 mls/hr IV .[id number] [facility] Last Admin: 03/15/17 14:47 Dose: 75 mls/hr Losartan Potassium (Cozaar) 100 mg PO DAILY [facility] Last Admin: 03/15/17 11:10 Dose: 100 mg Metoprolol Succinate (Toprol Xl) 100 mg PO DAILY [facility] Last Admin: 03/15/17 11:10 Dose: 100 mg Oxycodone/Acetaminophen (Percocet 5/325 Mg Tab) 1 tab PO QID [facility] Stop: 03/16/17 22:01 Last Admin: 03/15/17 14:44 Dose: 1 tab Pneumococcal Polyvalent Vaccine (Pneumovax 23 Vaccine) 0.5 ml IM .ONCE ONE Stop: 03/16/17 10:01 Potassium Chloride (Potassium Chloride Oral Soln) 40 meq PO DAILY [facility] Last Admin: 03/15/17 11:41 Dose: 40 meq Potassium Phos/Sodium Phos (Neutra-Phos) 1 pkt PO TID [facility] Stop: 03/17/17 14:00 Last Admin: 03/15/17 14:45 Dose: 1 pkt - Labs Labs: 03/15/17 08:06 03/15/17 08:06
[2017-03-15 17:22] LABS: CALCIUM 7.9 mg/dl (8.6-10.4); GFR AFRICAN-AMERICAN > 60; GFR NON-AFRICAN AMERICAN > 60
[2017-03-15 17:24] LABS: BLOOD UREA NITROGEN < 2 mg/dL (7-17)
[2017-03-16 09:10] LABS: BLOOD UREA NITROGEN 3 mg/dL (7-17); CALCIUM 7.9 mg/dl (8.6-10.4); GFR AFRICAN-AMERICAN > 60; GFR NON-AFRICAN AMERICAN > 60
[2017-03-16] MEDS ORDERED: Pneumococcal 23-Valent Vaccine IM ONE (10:00)
[2017-03-16] MEDS ORDERED: Influenza Vaccine 60 mcg/0.5 mL SYR (4YR UP) IM ONE (10:00)
[2017-03-16] MEDS: Metoprolol Succinate 100 mg XL Tab PO SCH (10:01)
[2017-03-16] MEDS: Potassium Chloride 20 mEq/15 ml LIQ UD PO SCH (10:01)
[2017-03-16] MEDS: Oxycodone/Acetaminophen 5/325 mg Tab PO SCH ×4 (10:01→21:37)
[2017-03-16] MEDS: Potassium & Sodium Phosphate PO SCH ×3 (10:04→17:51)
[2017-03-16] MEDS: Enoxaparin 30 mg Syringe SC SCH (10:05)
[2017-03-16] MEDS: Sodium Chloride 0.9% 1,000 ML IV SCH ×2 (10:07→21:37)
[2017-03-16] MEDS: Petrolatum Oint Foilpak (5 gm) TOP SCH ×3 (10:18→21:39)
--- NOTE | 2017-03-16 11:24 | CP.PCM.PN ---
Subjective - Date & Time of Evaluation Date of Evaluation: 03/16/17 Time of Evaluation: 11:24 Objective - Vital Signs/Intake and Output Vital Signs (last 24 hours): Temp Pulse Resp BP Pulse Ox 98 F 67 20 149/88 98 03/16/17 08:00 03/16/17 08:00 03/16/17 08:00 03/16/17 08:00 03/16/17 08:00 Intake and Output: 03/16/17 03/16/17 06:59 18:59 Intake Total 840 Balance 840 - Medications Medications: Current Medications Amlodipine Besylate (Norvasc) 5 mg PO DAILY [facility] Last Admin: 03/16/17 10:01 Dose: 5 mg Cyclobenzaprine HCl (Flexeril) 5 mg PO DAILY [facility] Last Admin: 03/16/17 10:04 Dose: 5 mg Emollient Ointment (Vaseline Oint) 5 gm TOP TID [facility] Last Admin: 03/16/17 10:18 Dose: Not Given Enoxaparin Sodium (Lovenox) 30 mg SC DAILY [facility] Last Admin: 03/16/17 10:05 Dose: 30 mg Gabapentin (Neurontin) 300 mg PO TID [facility] Last Admin: 03/16/17 10:04 Dose: 300 mg Sodium Chloride (Sodium Chloride 0.9%) 1,000 mls @ 75 mls/hr IV .[id number] [facility] Last Admin: 03/16/17 10:07 Dose: Not Given Losartan Potassium (Cozaar) 100 mg PO DAILY [facility] Last Admin: 03/16/17 10:01 Dose: 100 mg Metoprolol Succinate (Toprol Xl) 100 mg PO DAILY [facility] Last Admin: 03/16/17 10:01 Dose: 100 mg Oxycodone/Acetaminophen (Percocet 5/325 Mg Tab) 1 tab PO QID [facility] Stop: 03/16/17 22:01 Last Admin: 03/16/17 10:01 Dose: 1 tab Potassium Chloride (Potassium Chloride Oral Soln) 40 meq PO DAILY [facility] Last Admin: 03/16/17 10:01 Dose: 40 meq Potassium Phos/Sodium Phos (Neutra-Phos) 1 pkt PO TID [facility] Stop: 03/17/17 14:00 Last Admin: 03/16/17 10:04 Dose: 1 pkt - Labs Labs: 03/15/17 08:06 03/16/17 08:19
--- NOTE | 2017-03-16 14:47 | CP.PCM.PN ---
Subjective - Date & Time of Evaluation Date of Evaluation: 03/16/17 Time of Evaluation: 14:45 - Subjective Subjective: Assessment: critical Hypo-osmolar hyponatremia likely multifactorial: decreased oral intake, HCTZ, stimulation of ADH by pain, vomiting. also possible SIADH due to ? occult malignancy Hypokalemia Neutropenia anemia hx of thyroid cancer, sciatica, low back pain HTN Plan Na slowly improving appropriately continue to monitor. continue 1.5 l fluid restrict bp stable f/u onc w/u K and phos stable S: seen and examined, no complaints Physical Examination: General Appearance: Comfortable, in no acute respiratory distress, co-operative . ill appearing, cachexic Vitals reviewed and noted as below Head; Atraumatic, normocephalic ENT: no ulcers no thrush. Tongue is midline/dry. Oropharynx: no rash or ulcers. EYES: Pupils are equal, round and reactive to light accommodation. Eye muscles and extraocular movement intact. Sclera is anicteric. Neck; supple no lymphadenopathy, no thyromegaly or bruit. scarring in skin noted Lungs: Normal respiratory rate/effort. Breath sounds bilateral equal and clear Heart: Normal rate. s1s2 normal. No rub or gallop. Extremities: no edema. No varicose veins Neurological: Patient is alert, awake and oriented to person, place and time. No focal deficit. Strength bilateral appropriate and equal Skin: Warm and dry. Normal turgor. No rash. Palpitation: Normal elasticity for age Abdomen: Abdomen is soft. Bowel sounds +. There is no abdominal tenderness, no guarding/rigidity no organomegaly Psych: normal insight and normal affect/mood MSK: no joint tenderness or swelling. Digits and nails normal, no deformity : kidney or bladder not palpable Objective - Vital Signs/Intake and Output Vital Signs (last 24 hours): Temp Pulse Resp BP Pulse Ox 98 F 67 20 149/88 96 03/16/17 08:00 03/16/17 08:00 03/16/17 08:00 03/16/17 08:00 03/16/17 12:40 Intake and Output: 03/16/17 03/16/17 06:59 18:59 Intake Total 840 Balance 840 - Medications Medications: Current Medications Amlodipine Besylate (Norvasc) 5 mg PO DAILY [facility] Last Admin: 03/16/17 10:01 Dose: 5 mg Cyclobenzaprine HCl (Flexeril) 5 mg PO DAILY [facility] Last Admin: 03/16/17 10:04 Dose: 5 mg Emollient Ointment (Vaseline Oint) 5 gm TOP TID [facility] Last Admin: 03/16/17 14:37 Dose: Not Given Enoxaparin Sodium (Lovenox) 30 mg SC DAILY [facility] Last Admin: 03/16/17 10:05 Dose: 30 mg Gabapentin (Neurontin) 300 mg PO TID [facility] Last Admin: 03/16/17 14:36 Dose: 300 mg Sodium Chloride (Sodium Chloride 0.9%) 1,000 mls @ 75 mls/hr IV .[id number] [facility] Last Admin: 03/16/17 10:07 Dose: Not Given Losartan Potassium (Cozaar) 100 mg PO DAILY [facility] Last Admin: 03/16/17 10:01 Dose: 100 mg Metoprolol Succinate (Toprol Xl) 100 mg PO DAILY [facility] Last Admin: 03/16/17 10:01 Dose: 100 mg Oxycodone/Acetaminophen (Percocet 5/325 Mg Tab) 1 tab PO QID [facility] Stop: 03/16/17 22:01 Last Admin: 03/16/17 14:35 Dose: 1 tab Potassium Chloride (Potassium Chloride Oral Soln) 40 meq PO DAILY [facility] Last Admin: 03/16/17 10:01 Dose: 40 meq Potassium Phos/Sodium Phos (Neutra-Phos) 1 pkt PO TID [facility] Stop: 03/17/17 14:00 Last Admin: 03/16/17 14:36 Dose: 1 pkt - Labs Labs: 03/15/17 08:06 03/16/17 08:19
--- NOTE | 2017-03-16 15:30 | CP.PCM.PN ---
Subjective - Date & Time of Evaluation Date of Evaluation: 03/16/17 Time of Evaluation: 06:00 - Subjective Subjective: awake alert denies fever / chills no cough or chest pain Objective - Vital Signs/Intake and Output Vital Signs (last 24 hours): Temp Pulse Resp BP Pulse Ox 98 F 67 20 149/88 96 03/16/17 08:00 03/16/17 08:00 03/16/17 08:00 03/16/17 08:00 03/16/17 12:40 Intake and Output: 03/16/17 03/16/17 06:59 18:59 Intake Total 840 250 Balance 840 250 - Medications Medications: Current Medications Amlodipine Besylate (Norvasc) 5 mg PO DAILY [facility] Last Admin: 03/16/17 10:01 Dose: 5 mg Cyclobenzaprine HCl (Flexeril) 5 mg PO DAILY [facility] Last Admin: 03/16/17 10:04 Dose: 5 mg Emollient Ointment (Vaseline Oint) 5 gm TOP TID [facility] Last Admin: 03/16/17 14:37 Dose: Not Given Enoxaparin Sodium (Lovenox) 30 mg SC DAILY [facility] Last Admin: 03/16/17 10:05 Dose: 30 mg Gabapentin (Neurontin) 300 mg PO TID [facility] Last Admin: 03/16/17 14:36 Dose: 300 mg Sodium Chloride (Sodium Chloride 0.9%) 1,000 mls @ 75 mls/hr IV .[id number] [facility] Last Admin: 03/16/17 10:07 Dose: Not Given Losartan Potassium (Cozaar) 100 mg PO DAILY [facility] Last Admin: 03/16/17 10:01 Dose: 100 mg Metoprolol Succinate (Toprol Xl) 100 mg PO DAILY [facility] Last Admin: 03/16/17 10:01 Dose: 100 mg Oxycodone/Acetaminophen (Percocet 5/325 Mg Tab) 1 tab PO QID [facility] Stop: 03/16/17 22:01 Last Admin: 03/16/17 14:35 Dose: 1 tab Potassium Chloride (Potassium Chloride Oral Soln) 40 meq PO DAILY [facility] Last Admin: 03/16/17 10:01 Dose: 40 meq Potassium Phos/Sodium Phos (Neutra-Phos) 1 pkt PO TID [facility] Stop: 03/17/17 14:00 Last Admin: 03/16/17 14:36 Dose: 1 pkt - Labs Labs: 03/15/17 08:06 03/16/17 08:19 - Constitutional Appears: Non-toxic, Chronically Ill - Head Exam Head Exam: NORMOCEPHALIC - Eye Exam Eye Exam: PERRL - ENT Exam ENT Exam: Mucous Membranes Dry - Neck Exam Neck Exam: absent: Lymphadenopathy - Respiratory Exam Respiratory Exam: Decreased Breath Sounds - Cardiovascular Exam Cardiovascular Exam: REGULAR RHYTHM - GI/Abdominal Exam GI & Abdominal Exam: Distended, Soft. absent: Tenderness - Rectal Exam Rectal Exam: Deferred - Exam Exam: NORMAL INSPECTION - Extremities Exam Extremities Exam: absent: Pedal Edema - Back Exam Back Exam: absent: CVA tenderness (L), CVA tenderness (R) - Neurological Exam Neurological Exam: Alert, Awake, Oriented x3 Neuro motor strength exam: Left Upper Extremity: 5, Right Upper Extremity: 5, Left Lower Extremity: 5, Right Lower Extremity: 5 - Psychiatric Exam Psychiatric exam: Normal Mood - Skin Skin Exam: Dry Assessment and Plan (1) Anemia Status: Acute (2) Leukopenia Status: Acute (3) Lumbar radiculopathy Status: Acute (4) UTI (urinary tract infection) Status: Acute - Assessment and Plan (Free Text) Assessment: cultures neg so far reculture if pt spikes heme eval and follow up
--- NOTE | 2017-03-16 22:54 | CP.PCM.PN ---
Subjective - Date & Time of Evaluation Date of Evaluation: 03/15/17 Time of Evaluation: 18:00 - Subjective Subjective: Has lower back pain WBC downtrending Objective - Vital Signs/Intake and Output Vital Signs (last 24 hours): Temp Pulse Resp BP Pulse Ox 98.2 F 60 20 123/76 100 03/16/17 16:00 03/16/17 16:00 03/16/17 16:00 03/16/17 16:00 03/16/17 16:00 Intake and Output: 03/16/17 03/17/17 18:59 06:59 Intake Total 250 Balance 250 - Medications Medications: Current Medications Amlodipine Besylate (Norvasc) 5 mg PO DAILY [facility] Last Admin: 03/16/17 10:01 Dose: 5 mg Cyclobenzaprine HCl (Flexeril) 5 mg PO DAILY [facility] Last Admin: 03/16/17 10:04 Dose: 5 mg Emollient Ointment (Vaseline Oint) 5 gm TOP TID [facility] Last Admin: 03/16/17 21:39 Dose: Not Given Enoxaparin Sodium (Lovenox) 30 mg SC DAILY [facility] Last Admin: 03/16/17 10:05 Dose: 30 mg Gabapentin (Neurontin) 300 mg PO TID [facility] Last Admin: 03/16/17 17:50 Dose: 300 mg Sodium Chloride (Sodium Chloride 0.9%) 1,000 mls @ 75 mls/hr IV .[id number] [facility] Last Admin: 03/16/17 21:37 Dose: 75 mls/hr Losartan Potassium (Cozaar) 100 mg PO DAILY [facility] Last Admin: 03/16/17 10:01 Dose: 100 mg Metoprolol Succinate (Toprol Xl) 100 mg PO DAILY [facility] Last Admin: 03/16/17 10:01 Dose: 100 mg Potassium Phos/Sodium Phos (Neutra-Phos) 1 pkt PO TID [facility] Stop: 03/17/17 14:00 Last Admin: 03/16/17 17:51 Dose: 1 pkt - Labs Labs: 03/15/17 08:06 03/16/17 08:19 - Head Exam Head Exam: ATRAUMATIC - Eye Exam Eye Exam: Normal appearance - ENT Exam ENT Exam: Mucous Membranes Dry - Respiratory Exam Respiratory Exam: NORMAL BREATHING PATTERN - Cardiovascular Exam Cardiovascular Exam: +S1, +S2 - GI/Abdominal Exam GI & Abdominal Exam: Normal Bowel Sounds - Extremities Exam Extremities Exam: Normal Inspection Assessment and Plan (1) Neutropenia Assessment & Plan: discussed need for bone marrow evaluation pt wants to think about it Status: Acute (2) Anemia Assessment & Plan: chronic disease possible bone marrow biopsy Status: Acute
[2017-03-17 06:16] LABS: BASO % 0.7 % (0.0-2.0); EOS % 1.1 % (0.0-4.0); LYMPH # 0.5 K/uL (1.0-4.3); LYMPH % 27.6 % (20.0-40.0); MEAN CELL VOLUME 104.7 fL (81.0-99.0); MEAN CORPUSCULAR HEMOGLOBIN 36.8 pg (27.0-31.0); MEAN CORPUSCULAR HGB CONC 35.2 g/dL (33.0-37.0); MEAN PLATELET VOLUME 6.2 fL (7.2-11.7); MONO # 0.4 K/uL (0.0-0.8); NEUT # 0.9 K/uL (1.8-7.0); NEUT % 48.6 % (50.0-75.0); PLATELET COUNT 252 K/uL (130-400); RBC 2.72 Mil/uL (3.80-5.20); RED CELL DISTRIBUTION WIDTH 13.1 % (11.5-14.5)
[2017-03-17 06:35] LABS: BLOOD UREA NITROGEN 3 mg/dL (7-17); CALCIUM 7.9 mg/dl (8.6-10.4); GFR AFRICAN-AMERICAN > 60; GFR NON-AFRICAN AMERICAN > 60
[2017-03-17 06:37] LABS: WHITE BLOOD COUNT 1.9 K/uL (4.8-10.8)
[2017-03-17] MEDS: Metoprolol Succinate 100 mg XL Tab PO SCH (09:50)
[2017-03-17] MEDS: Petrolatum Oint Foilpak (5 gm) TOP SCH ×3 (09:51→17:37)
[2017-03-17] MEDS: Enoxaparin 30 mg Syringe SC SCH (09:51)
[2017-03-17] MEDS: Potassium & Sodium Phosphate PO SCH ×2 (09:51→13:41)
[2017-03-17 09:53] LABS: EOSINOPHIL 3 % (0-4); LYMPHOCYTE 31 % (20-40); MONOCYTE 17 % (0-10); NEUTROPHIL 47 % (50-75); REACTIVE LYMPHOCYTES 2 % (0-0); TOTAL CELLS COUNTED 100
[2017-03-17 09:54] LABS: PLATELET ESTIMATE NORMAL (NORMAL)
[2017-03-17 09:57] LABS: ANISOCYTOSIS SLIGHT; LARGE PLATELETS PRESENT
[2017-03-17 09:58] LABS: GIANT PLATELETS PRESENT; HYPOCHROMIC SLIGHT
[2017-03-17 09:59] LABS: TOXIC GRANULATION PRESENT
--- NOTE | 2017-03-17 12:00 | CP.PCM.PN ---
Subjective - Date & Time of Evaluation Date of Evaluation: 03/17/17 Time of Evaluation: 08:00 - Subjective Subjective: weak but afeb c/o pain and weakness - has HNP may need PT/OT, neuro eval heme following hold antibiotics for now Objective - Vital Signs/Intake and Output Vital Signs (last 24 hours): Temp Pulse Resp BP Pulse Ox 97.9 F 61 20 161/88 H 96 03/17/17 07:46 03/17/17 07:46 03/17/17 07:46 03/17/17 07:46 03/17/17 07:46 Intake and Output: 03/17/17 03/17/17 06:59 18:59 Intake Total 840 Balance 840 - Medications Medications: Current Medications Amlodipine Besylate (Norvasc) 5 mg PO DAILY [facility] Last Admin: 03/17/17 09:50 Dose: 5 mg Cyclobenzaprine HCl (Flexeril) 5 mg PO DAILY [facility] Last Admin: 03/17/17 09:51 Dose: 5 mg Emollient Ointment (Vaseline Oint) 5 gm TOP TID [facility] Last Admin: 03/17/17 09:51 Dose: 5 gm Enoxaparin Sodium (Lovenox) 30 mg SC DAILY [facility] Last Admin: 03/17/17 09:51 Dose: 30 mg Gabapentin (Neurontin) 300 mg PO TID [facility] Last Admin: 03/17/17 09:50 Dose: 300 mg Sodium Chloride (Sodium Chloride 0.9%) 1,000 mls @ 75 mls/hr IV .[id number] [facility] Last Admin: 03/16/17 21:37 Dose: 75 mls/hr Losartan Potassium (Cozaar) 100 mg PO DAILY [facility] Last Admin: 03/17/17 09:50 Dose: 100 mg Metoprolol Succinate (Toprol Xl) 100 mg PO DAILY [facility] Last Admin: 03/17/17 09:50 Dose: 100 mg Potassium Phos/Sodium Phos (Neutra-Phos) 1 pkt PO TID [facility] Stop: 03/17/17 14:00 Last Admin: 03/17/17 09:51 Dose: 1 pkt - Labs Labs: 03/17/17 06:05 03/17/17 06:05 - Constitutional Appears: Non-toxic, Chronically Ill - Eye Exam Eye Exam: PERRL. absent: Scleral icterus - ENT Exam ENT Exam: Mucous Membranes Dry - Neck Exam Neck Exam: absent: Lymphadenopathy - Respiratory Exam Respiratory Exam: Decreased Breath Sounds - Cardiovascular Exam Cardiovascular Exam: REGULAR RHYTHM - GI/Abdominal Exam GI & Abdominal Exam: Distended - Rectal Exam Rectal Exam: Deferred - Exam Exam: NORMAL INSPECTION Assessment and Plan (1) Anemia Status: Acute (2) Leukopenia Status: Acute (3) Lumbar radiculopathy Status: Acute (4) UTI (urinary tract infection) Status: Acute
--- NOTE | 2017-03-17 18:42 | CP.PCM.PN ---
Subjective - Date & Time of Evaluation Date of Evaluation: 03/17/17 Time of Evaluation: 18:39 - Subjective Subjective: Follow up Nephrology Consultation: Assessment: stable Hypo-osmolar hyponatremia likely multifactorial: decreased oral intake, HCTZ, stimulation of ADH by pain, vomiting. also possible SIADH due to ? occult malignancy Hypokalemia Neutropenia, anemia hx of thyroid cancer, sciatica, low back pain, HTN Plan Hypertension control with meds as ordered. Patient on ARB. agree to d/c thiazide diuretics. heme/onc work up ongoing. ID following restrict her free water intake. avoid correction in serum Na >6-8 meq/24 hr. no need for hypertonic saline at this time. may consider tolvaptan if no impromevent in serum Na with these measures. supplement electrolytes as needed Check urine Na/osmol today. repeat CBC/BMP in AM Glycemic and pain control Further work up/management as per primary team Thanks for allowing me to participate in care of your patient. Will follow patient with you. Please call if any Qs. d/w son and team Dr Yury Jalloh Office: [phone] Chief Complaint; backpain HPI: Pt is a 56 F with hx of thyroid cancer, sciatica, low back pain, HTN and anemia presented with complaints of decreased oral intake for last 3 days and worsening low back pain radiating to leg. renal consult for Hyponatremia. she has been on HCTZ. also had episodes of vomiting. Denies OTC/herbal meds or NSAIDs denies drug abuse, psych meds. smokes. drink beer once a week on fridays had wt loss at time of thyroid cancer few years ago, says never gained back reports difficulty in swallowing for long time ROS: Cardiovascular: No chest pain. Pulmonary: No shortness of breath Gastrointestinal: denies abdominal pain No nausea. no vomiting. Genitourinary: No pain while urinating. Denies blood in urine. All other negative except as mentioned in HPI. has decreased appetite Physical Examination: General Appearance: Comfortable, in no acute respiratory distress, co-operative . Vitals reviewed and noted as below Head; Atraumatic, normocephalic ENT: no ulcers no thrush. Tongue is midline. Oropharynx: no rash or ulcers. EYES: Pupils are equal, round and reactive to light accommodation. Eye muscles and extraocular movement intact. Sclera is anicteric. Neck; supple no lymphadenopathy, no thyromegaly or bruit. scarring in skin noted Lungs: Normal respiratory rate/effort. Breath sounds bilateral equal and clear Heart: Normal rate. s1s2 normal. No rub or gallop. Extremities: no edema. No varicose veins Neurological: Patient is alert, awake and oriented to person, place and time. No focal deficit. Strength bilateral appropriate and equal Skin: Warm and dry. Normal turgor. No rash. Palpitation: Normal elasticity for age Abdomen: Abdomen is soft. Bowel sounds +. There is no abdominal tenderness, no guarding/rigidity no organomegaly Psych: normal insight and normal affect/mood MSK: no joint tenderness or swelling. Digits and nails normal, no deformity : kidney or bladder not palpable Labs/imaging reviewed. Past medical history, past surgical history, family history, social history, allergy reviewed and noted as below Family hx: no hx of CKD. Rest non-contributory work up: serum osmol 265 urine Na 74 urine Osmol 304 Objective - Vital Signs/Intake and Output Vital Signs (last 24 hours): Temp Pulse Resp BP Pulse Ox 98.5 F 73 20 115/77 100 03/17/17 16:00 03/17/17 16:00 03/17/17 16:00 03/17/17 16:00 03/17/17 16:00 Intake and Output: 03/17/17 03/17/17 06:59 18:59 Intake Total 840 900 Balance 840 900 - Medications Medications: Current Medications Amlodipine Besylate (Norvasc) 5 mg PO DAILY [facility] Last Admin: 03/17/17 09:50 Dose: 5 mg Cyclobenzaprine HCl (Flexeril) 5 mg PO DAILY [facility] Last Admin: 03/17/17 09:51 Dose: 5 mg Emollient Ointment (Vaseline Oint) 5 gm TOP TID [facility] Last Admin: 03/17/17 17:37 Dose: 5 gm Enoxaparin Sodium (Lovenox) 30 mg SC DAILY [facility] Last Admin: 03/17/17 09:51 Dose: 30 mg Gabapentin (Neurontin) 300 mg PO TID [facility] Last Admin: 03/17/17 17:37 Dose: 300 mg Losartan Potassium (Cozaar) 100 mg PO DAILY [facility] Last Admin: 03/17/17 09:50 Dose: 100 mg Metoprolol Succinate (Toprol Xl) 100 mg PO DAILY [facility] Last Admin: 03/17/17 09:50 Dose: 100 mg - Labs Labs: 03/17/17 06:05 03/17/17 06:05
--- NOTE | 2017-03-17 19:59 | CP.PCM.PN ---
Subjective - Date & Time of Evaluation Date of Evaluation: 03/17/17 Objective - Vital Signs/Intake and Output Vital Signs (last 24 hours): Temp Pulse Resp BP Pulse Ox 98.5 F 73 20 115/77 100 03/17/17 16:00 03/17/17 16:00 03/17/17 16:00 03/17/17 16:00 03/17/17 16:00 Intake and Output: 03/17/17 03/18/17 18:59 06:59 Intake Total 900 Balance 900 - Medications Medications: Current Medications Amlodipine Besylate (Norvasc) 5 mg PO DAILY [facility] Last Admin: 03/17/17 09:50 Dose: 5 mg Cyclobenzaprine HCl (Flexeril) 5 mg PO DAILY [facility] Last Admin: 03/17/17 09:51 Dose: 5 mg Emollient Ointment (Vaseline Oint) 5 gm TOP TID [facility] Last Admin: 03/17/17 17:37 Dose: 5 gm Enoxaparin Sodium (Lovenox) 30 mg SC DAILY [facility] Last Admin: 03/17/17 09:51 Dose: 30 mg Gabapentin (Neurontin) 300 mg PO TID [facility] Last Admin: 03/17/17 17:37 Dose: 300 mg Losartan Potassium (Cozaar) 100 mg PO DAILY [facility] Last Admin: 03/17/17 09:50 Dose: 100 mg Metoprolol Succinate (Toprol Xl) 100 mg PO DAILY [facility] Last Admin: 03/17/17 09:50 Dose: 100 mg - Labs Labs: 03/17/17 06:05 03/17/17 06:05
--- NOTE | 2017-03-17 23:28 | CP.PCM.PN ---
Subjective - Date & Time of Evaluation Date of Evaluation: 03/17/17 Time of Evaluation: 08:15 - Subjective Subjective: Has some back pain Objective - Vital Signs/Intake and Output Vital Signs (last 24 hours): Temp Pulse Resp BP Pulse Ox 98.9 F 60 20 143/77 100 03/17/17 23:21 03/17/17 23:21 03/17/17 23:21 03/17/17 23:21 03/17/17 23:21 Intake and Output: 03/17/17 03/18/17 18:59 06:59 Intake Total 900 Balance 900 - Medications Medications: Current Medications Amlodipine Besylate (Norvasc) 5 mg PO DAILY [facility] Last Admin: 03/17/17 09:50 Dose: 5 mg Cyclobenzaprine HCl (Flexeril) 5 mg PO DAILY [facility] Last Admin: 03/17/17 09:51 Dose: 5 mg Emollient Ointment (Vaseline Oint) 5 gm TOP TID [facility] Last Admin: 03/17/17 17:37 Dose: 5 gm Enoxaparin Sodium (Lovenox) 30 mg SC DAILY [facility] Last Admin: 03/17/17 09:51 Dose: 30 mg Gabapentin (Neurontin) 300 mg PO TID [facility] Last Admin: 03/17/17 17:37 Dose: 300 mg Losartan Potassium (Cozaar) 100 mg PO DAILY [facility] Last Admin: 03/17/17 09:50 Dose: 100 mg Metoprolol Succinate (Toprol Xl) 100 mg PO DAILY [facility] Last Admin: 03/17/17 09:50 Dose: 100 mg - Labs Labs: 03/17/17 06:05 03/17/17 06:05 - Head Exam Head Exam: ATRAUMATIC - Eye Exam Eye Exam: Normal appearance - ENT Exam ENT Exam: Mucous Membranes Dry - Respiratory Exam Respiratory Exam: NORMAL BREATHING PATTERN - Cardiovascular Exam Cardiovascular Exam: +S1, +S2 - GI/Abdominal Exam GI & Abdominal Exam: Normal Bowel Sounds Assessment and Plan (1) Neutropenia Assessment & Plan: improved today bone marrow evaluation at some point; can do as outpatient if patient to be discharged Status: Acute (2) Anemia Assessment & Plan: chronic disease Status: Acute
[2017-03-18] MEDS: Sodium Chloride 0.9% 1,000 ML IV SCH ×2 (03:32→18:00)
[2017-03-18 07:14] LABS: OSMOLALITY,URINE 290 mosm/kg (300-1000)
[2017-03-18 07:59] LABS: BASO % 0.4 % (0.0-2.0); HEMOGLOBIN 9.9 g/dL (11.0-16.0); LYMPH # 0.5 K/uL (1.0-4.3); LYMPH % 16.1 % (20.0-40.0); MEAN CORPUSCULAR HEMOGLOBIN 36.9 pg (27.0-31.0); MEAN CORPUSCULAR HGB CONC 35.4 g/dL (33.0-37.0); MEAN PLATELET VOLUME 6.1 fL (7.2-11.7); MONO # 0.5 K/uL (0.0-0.8); MONO % 16.2 % (0.0-10.0); NEUT # 2.2 K/uL (1.8-7.0); NEUT % 66.3 % (50.0-75.0); RBC 2.68 Mil/uL (3.80-5.20); RED CELL DISTRIBUTION WIDTH 13.3 % (11.5-14.5)
[2017-03-18 08:01] LABS: WHITE BLOOD COUNT 3.3 K/uL (4.8-10.8)
[2017-03-18 08:14] LABS: BLOOD UREA NITROGEN 3 mg/dL (7-17); CALCIUM 8.1 mg/dl (8.6-10.4); GFR AFRICAN-AMERICAN > 60; GFR NON-AFRICAN AMERICAN > 60
[2017-03-18] MEDS ORDERED: Tolvaptan 15 MG TAB PO ONE (09:38)
[2017-03-18] MEDS ORDERED: Potassium Chloride 20 mEq ER Tab PO SCH (10:15)
[2017-03-18] MEDS: Metoprolol Succinate 100 mg XL Tab PO SCH (11:31)
[2017-03-18] MEDS: Enoxaparin 30 mg Syringe SC SCH (11:32)
[2017-03-18] MEDS: Petrolatum Oint Foilpak (5 gm) TOP SCH ×3 (11:32→17:29)
--- NOTE | 2017-03-18 11:36 | CP.PCM.PN ---
<Hoa Lozada - Last Filed: 03/18/17 11:33> Subjective - Date & Time of Evaluation Date of Evaluation: 03/18/17 Time of Evaluation: 09:00 - Subjective Subjective: PGY 3- Heme/Onc Progress Note- Dr. Le's Service: Patient seen and examined at bedside this AM. Patient is complaining of low back pain that is radiating into her right leg. Otherwise, denies chest pain, palpitations, SOB, fevers, chills, dysuria, hematuria. Non productive cough persists since admission, but has improved. Objective - Vital Signs/Intake and Output Vital Signs (last 24 hours): Temp Pulse Resp BP Pulse Ox 98.2 F 70 20 132/84 98 03/18/17 08:36 03/18/17 08:36 03/18/17 08:36 03/18/17 08:36 03/18/17 08:36 Intake and Output: 03/18/17 03/18/17 06:59 18:59 Intake Total 800 Balance 800 - Medications Medications: Current Medications Amlodipine Besylate (Norvasc) 5 mg PO DAILY [facility] Last Admin: 03/18/17 11:32 Dose: 5 mg Cyclobenzaprine HCl (Flexeril) 5 mg PO DAILY [facility] Last Admin: 03/18/17 11:32 Dose: 5 mg Emollient Ointment (Vaseline Oint) 5 gm TOP TID [facility] Last Admin: 03/18/17 11:32 Dose: 5 gm Enoxaparin Sodium (Lovenox) 30 mg SC DAILY [facility] Last Admin: 03/18/17 11:32 Dose: 30 mg Gabapentin (Neurontin) 300 mg PO TID [facility] Last Admin: 03/18/17 11:31 Dose: 300 mg Losartan Potassium (Cozaar) 100 mg PO DAILY [facility] Last Admin: 03/18/17 11:31 Dose: 100 mg Metoprolol Succinate (Toprol Xl) 100 mg PO DAILY [facility] Last Admin: 03/18/17 11:31 Dose: 100 mg - Labs Labs: 03/18/17 07:45 03/18/17 07:45 - Constitutional Appears: No Acute Distress - Head Exam Head Exam: NORMAL INSPECTION, NORMOCEPHALIC - Eye Exam Eye Exam: EOMI, Normal appearance - ENT Exam ENT Exam: Mucous Membranes Moist - Neck Exam Neck Exam: Full ROM - Respiratory Exam Respiratory Exam: Clear to Ausculation Bilateral, NORMAL BREATHING PATTERN - Cardiovascular Exam Cardiovascular Exam: REGULAR RHYTHM, +S1, +S2 - GI/Abdominal Exam GI & Abdominal Exam: Soft. absent: Distended, Tenderness - Extremities Exam Extremities Exam: absent: Pedal Edema - Back Exam Back Exam: absent: Full ROM - Neurological Exam Neurological Exam: Alert, Awake, Oriented x3 - Psychiatric Exam Psychiatric exam: Normal Mood - Skin Skin Exam: Dry, Warm Assessment and Plan (1) Neutropenia Assessment & Plan: WBC 3.3. Improved today. Bone marrow evaluation recommended; can be done as outpatient if patient to be discharged Status: Acute (2) Anemia Assessment & Plan: Ferritin 327. Stool OB negative. Anemia of chronic disease. H/H stable Status: Acute (3) History of thyroid cancer Assessment & Plan: TSH normal Status: Acute - Assessment and Plan (Free Text) Assessment: Patient seen and examined during rounds with Dr. Le. Recommendations above as per attending. Mikey Lozada, PGY 3 <Robinson Le - Last Filed: 03/18/17 21:08> Objective - Vital Signs/Intake and Output Vital Signs (last 24 hours): Temp Pulse Resp BP Pulse Ox 99.2 F 74 20 146/90 99 03/18/17 17:38 03/18/17 17:38 03/18/17 17:38 03/18/17 17:38 03/18/17 17:38 - Medications Medications: Current Medications Amlodipine Besylate (Norvasc) 5 mg PO DAILY [facility] Last Admin: 03/18/17 11:32 Dose: 5 mg Cyclobenzaprine HCl (Flexeril) 5 mg PO DAILY [facility] Last Admin: 03/18/17 11:32 Dose: 5 mg Emollient Ointment (Vaseline Oint) 5 gm TOP TID [facility] Last Admin: 03/18/17 17:29 Dose: Not Given Enoxaparin Sodium (Lovenox) 30 mg SC DAILY [facility] Last Admin: 03/18/17 11:32 Dose: 30 mg Gabapentin (Neurontin) 300 mg PO TID [facility] Last Admin: 03/18/17 17:27 Dose: 300 mg Losartan Potassium (Cozaar) 100 mg PO DAILY [facility] Last Admin: 03/18/17 11:31 Dose: 100 mg Metoprolol Succinate (Toprol Xl) 100 mg PO DAILY [facility] Last Admin: 03/18/17 11:31 Dose: 100 mg Sodium Chloride (Sodium Chloride Tab) 1 gm PO BID [facility] Stop: 03/23/17 13:01 Last Admin: 03/18/17 17:26 Dose: 1 gm - Labs Labs: 03/18/17 07:45 03/18/17 07:45 Assessment and Plan (1) Neutropenia Status: Acute (2) Anemia Status: Acute - Assessment and Plan (Free Text) Assessment: Pt seen and examined, agree with residents note. WBC improving, no emergent need for bone marrow evaluation.
--- NOTE | 2017-03-18 12:32 | CP.PCM.PN ---
Subjective - Date & Time of Evaluation Date of Evaluation: 03/18/17 Time of Evaluation: 12:30 - Subjective Subjective: Follow up Nephrology Consultation: Assessment: stable Hypo-osmolar hyponatremia likely multifactorial: decreased oral intake, HCTZ, stimulation of ADH by pain, vomiting. also possible SIADH due to ? occult malignancy Hypokalemia Neutropenia, anemia hx of thyroid cancer, sciatica, low back pain, HTN Plan Hypertension control with meds as ordered. Patient on ARB. agree to d/c thiazide diuretics. heme/onc work up ongoing. ID following restrict her free water intake. will start salt tab 1 gram bid. tolvaptan was also ordered but as per pharmacy it can't be given until unless serum Na <125. avoid correction in serum Na >6-8 meq/24 hr. no need for hypertonic saline at this time. supplement electrolytes as needed Glycemic and pain control Further work up/management as per primary team Thanks for allowing me to participate in care of your patient. Will follow patient with you. Please call if any Qs. Dr Yury Jalloh Office: [phone] Chief Complaint; backpain HPI: Pt is a 56 F with hx of thyroid cancer, sciatica, low back pain, HTN and anemia presented with complaints of decreased oral intake for last 3 days and worsening low back pain radiating to leg. renal consult for Hyponatremia. she has been on HCTZ. also had episodes of vomiting. Denies OTC/herbal meds or NSAIDs denies drug abuse, psych meds. smokes. drink beer once a week on fridays had wt loss at time of thyroid cancer few years ago, says never gained back reports difficulty in swallowing for long time ROS: Cardiovascular: No chest pain. Pulmonary: No shortness of breath Gastrointestinal: denies abdominal pain No nausea. no vomiting. Genitourinary: No pain while urinating. Denies blood in urine. All other negative except as mentioned in HPI. has decreased appetite Physical Examination: General Appearance: Comfortable, in no acute respiratory distress, co-operative . Vitals reviewed and noted as below Head; Atraumatic, normocephalic ENT: no ulcers no thrush. Tongue is midline. Oropharynx: no rash or ulcers. EYES: Pupils are equal, round and reactive to light accommodation. Eye muscles and extraocular movement intact. Sclera is anicteric. Neck; supple no lymphadenopathy, no thyromegaly or bruit. scarring in skin noted Lungs: Normal respiratory rate/effort. Breath sounds bilateral equal and clear Heart: Normal rate. s1s2 normal. No rub or gallop. Extremities: no edema. No varicose veins Neurological: Patient is alert, awake and oriented to person, place and time. No focal deficit. Strength bilateral appropriate and equal Skin: Warm and dry. Normal turgor. No rash. Palpitation: Normal elasticity for age Abdomen: Abdomen is soft. Bowel sounds +. There is no abdominal tenderness, no guarding/rigidity no organomegaly Psych: normal insight and normal affect/mood MSK: no joint tenderness or swelling. Digits and nails normal, no deformity : kidney or bladder not palpable Labs/imaging reviewed. Past medical history, past surgical history, family history, social history, allergy reviewed and noted as below Family hx: no hx of CKD. Rest non-contributory work up: serum osmol 265 urine Na 74 urine Osmol 304 Objective - Vital Signs/Intake and Output Vital Signs (last 24 hours): Temp Pulse Resp BP Pulse Ox 98.2 F 70 20 132/84 98 03/18/17 08:36 03/18/17 08:36 03/18/17 08:36 03/18/17 08:36 03/18/17 08:36 Intake and Output: 03/18/17 03/18/17 06:59 18:59 Intake Total 800 Balance 800 - Medications Medications: Current Medications Amlodipine Besylate (Norvasc) 5 mg PO DAILY [facility] Last Admin: 03/18/17 11:32 Dose: 5 mg Cyclobenzaprine HCl (Flexeril) 5 mg PO DAILY [facility] Last Admin: 03/18/17 11:32 Dose: 5 mg Emollient Ointment (Vaseline Oint) 5 gm TOP TID [facility] Last Admin: 03/18/17 11:32 Dose: 5 gm Enoxaparin Sodium (Lovenox) 30 mg SC DAILY [facility] Last Admin: 03/18/17 11:32 Dose: 30 mg Gabapentin (Neurontin) 300 mg PO TID [facility] Last Admin: 03/18/17 11:31 Dose: 300 mg Losartan Potassium (Cozaar) 100 mg PO DAILY [facility] Last Admin: 03/18/17 11:31 Dose: 100 mg Metoprolol Succinate (Toprol Xl) 100 mg PO DAILY [facility] Last Admin: 03/18/17 11:31 Dose: 100 mg Sodium Chloride (Sodium Chloride Tab) 1 gm PO BID [facility] Stop: 03/23/17 13:01 - Labs Labs: 03/18/17 07:45 03/18/17 07:45
--- NOTE | 2017-03-18 16:26 | CP.PCM.PN ---
Subjective - Date & Time of Evaluation Date of Evaluation: 03/18/17 Time of Evaluation: 07:00 - Subjective Subjective: clinically same Objective - Vital Signs/Intake and Output Vital Signs (last 24 hours): Temp Pulse Resp BP Pulse Ox 98.2 F 70 20 132/84 98 03/18/17 08:36 03/18/17 08:36 03/18/17 08:36 03/18/17 08:36 03/18/17 08:36 Intake and Output: 03/18/17 03/18/17 06:59 18:59 Intake Total 800 Balance 800 - Medications Medications: Current Medications Amlodipine Besylate (Norvasc) 5 mg PO DAILY [facility] Last Admin: 03/18/17 11:32 Dose: 5 mg Cyclobenzaprine HCl (Flexeril) 5 mg PO DAILY [facility] Last Admin: 03/18/17 11:32 Dose: 5 mg Emollient Ointment (Vaseline Oint) 5 gm TOP TID [facility] Last Admin: 03/18/17 14:22 Dose: 5 gm Enoxaparin Sodium (Lovenox) 30 mg SC DAILY [facility] Last Admin: 03/18/17 11:32 Dose: 30 mg Gabapentin (Neurontin) 300 mg PO TID [facility] Last Admin: 03/18/17 14:19 Dose: 300 mg Losartan Potassium (Cozaar) 100 mg PO DAILY [facility] Last Admin: 03/18/17 11:31 Dose: 100 mg Metoprolol Succinate (Toprol Xl) 100 mg PO DAILY [facility] Last Admin: 03/18/17 11:31 Dose: 100 mg Sodium Chloride (Sodium Chloride Tab) 1 gm PO BID [facility] Stop: 03/23/17 13:01 Last Admin: 03/18/17 14:26 Dose: 1 gm - Labs Labs: 03/18/17 07:45 03/18/17 07:45 - Constitutional Appears: Well - Head Exam Head Exam: ATRAUMATIC, NORMAL INSPECTION, NORMOCEPHALIC - Eye Exam Eye Exam: EOMI, Normal appearance, PERRL Pupil Exam: NORMAL ACCOMODATION, PERRL - ENT Exam ENT Exam: Mucous Membranes Moist, Normal Exam - Neck Exam Neck Exam: Full ROM, Normal Inspection. absent: Lymphadenopathy - Respiratory Exam Respiratory Exam: Decreased Breath Sounds - Cardiovascular Exam Cardiovascular Exam: REGULAR RHYTHM, +S1, +S2 - GI/Abdominal Exam GI & Abdominal Exam: Soft, Diminished Bowel Sounds - Rectal Exam Rectal Exam: Deferred
[2017-03-19 08:44] VITALS: BP 155/88; PULSE 66; TEMP 98.3; O2SAT 96
[2017-03-19 09:00] LABS: BLOOD UREA NITROGEN 3 mg/dL (7-17); CALCIUM 8.3 mg/dl (8.6-10.4); GFR AFRICAN-AMERICAN > 60; GFR NON-AFRICAN AMERICAN > 60
[2017-03-19] MEDS: Enoxaparin 30 mg Syringe SC SCH (11:32)
[2017-03-19] MEDS: Petrolatum Oint Foilpak (5 gm) TOP SCH ×2 (11:32→15:06)
[2017-03-19] MEDS: Metoprolol Succinate 100 mg XL Tab PO SCH (11:32)
--- NOTE | 2017-03-19 12:33 | CP.PCM.PN ---
<Hoa Lozada - Last Filed: 03/19/17 12:30> Subjective - Date & Time of Evaluation Date of Evaluation: 03/19/17 Time of Evaluation: 09:10 - Subjective Subjective: PGY 3- Heme/Onc Progress Note- Dr. Le's Service: Patient seen and examined at bedside this AM. Back pain has improved today. Otherwise, denies chest pain, palpitations, SOB, fevers, chills, dysuria, hematuria. Objective - Vital Signs/Intake and Output Vital Signs (last 24 hours): Temp Pulse Resp BP Pulse Ox 98.3 F 66 20 155/88 H 96 03/19/17 08:43 03/19/17 08:43 03/19/17 08:43 03/19/17 08:43 03/19/17 08:43 Intake and Output: 03/19/17 03/19/17 06:59 18:59 Intake Total 600 Balance 600 - Medications Medications: Current Medications Amlodipine Besylate (Norvasc) 5 mg PO DAILY [facility] Last Admin: 03/19/17 11:31 Dose: 5 mg Cyclobenzaprine HCl (Flexeril) 5 mg PO DAILY [facility] Last Admin: 03/19/17 11:48 Dose: 5 mg Emollient Ointment (Vaseline Oint) 5 gm TOP TID [facility] Last Admin: 03/19/17 11:32 Dose: Not Given Enoxaparin Sodium (Lovenox) 30 mg SC DAILY [facility] Last Admin: 03/19/17 11:32 Dose: 30 mg Gabapentin (Neurontin) 300 mg PO TID [facility] Last Admin: 03/19/17 11:31 Dose: 300 mg Losartan Potassium (Cozaar) 100 mg PO DAILY [facility] Last Admin: 03/19/17 11:31 Dose: 100 mg Metoprolol Succinate (Toprol Xl) 100 mg PO DAILY [facility] Last Admin: 03/19/17 11:32 Dose: 100 mg Sodium Chloride (Sodium Chloride Tab) 1 gm PO BID [facility] Stop: 03/23/17 13:01 Last Admin: 03/19/17 11:31 Dose: 1 gm - Labs Labs: 03/18/17 07:45 03/19/17 08:02 - Constitutional Appears: No Acute Distress, Chronically Ill - Head Exam Head Exam: NORMAL INSPECTION, NORMOCEPHALIC - Eye Exam Eye Exam: EOMI, Normal appearance - ENT Exam ENT Exam: Mucous Membranes Moist - Neck Exam Neck Exam: Full ROM - Respiratory Exam Respiratory Exam: Clear to Ausculation Bilateral. absent: Rales, Wheezes - Cardiovascular Exam Cardiovascular Exam: REGULAR RHYTHM, +S1, +S2 - GI/Abdominal Exam GI & Abdominal Exam: Soft. absent: Distended, Tenderness - Extremities Exam Extremities Exam: Full ROM - Back Exam Back Exam: NORMAL INSPECTION - Neurological Exam Neurological Exam: Alert, Awake, Oriented x3 Assessment and Plan (1) Neutropenia Assessment & Plan: Most recent WBC 3.3 Patient does not need neutropenic precautions since ANC> 500 Bone marrow evaluation recommended; can be done as outpatient if patient to be discharged Status: Acute (2) Anemia Assessment & Plan: Ferritin 327. Stool OB negative. Anemia of chronic disease. H/H stable Status: Acute (3) History of thyroid cancer Assessment & Plan: History of thyroid cancer s/p surgery and EBRT 3 years ago Status: Acute - Assessment and Plan (Free Text) Assessment: Case discussed with Dr. Le. Mikey Lozada, PGY 3 <Robinson Le - Last Filed: 03/20/17 10:50> Objective - Vital Signs/Intake and Output Vital Signs (last 24 hours): Temp Pulse Resp BP Pulse Ox 98.3 F 66 20 155/88 H 96 03/19/17 08:43 03/19/17 08:43 03/19/17 08:43 03/19/17 08:43 03/19/17 08:43 - Labs Labs: 03/18/17 07:45 03/19/17 08:02 Assessment and Plan (1) Neutropenia Status: Acute (2) Anemia Status: Acute - Assessment and Plan (Free Text) Assessment: Pt seen and examined, agree with residents note.
--- NOTE | 2017-03-19 16:39 | CP.PCM.PN ---
Subjective - Date & Time of Evaluation Date of Evaluation: 03/19/17 Time of Evaluation: 11:00 - Subjective Subjective: Alert, awake, ambulatory. Nosob or chest pains. Objective - Vital Signs/Intake and Output Vital Signs (last 24 hours): Temp Pulse Resp BP Pulse Ox 98.3 F 66 20 155/88 H 96 03/19/17 08:43 03/19/17 08:43 03/19/17 08:43 03/19/17 08:43 03/19/17 08:43 Intake and Output: 03/19/17 03/19/17 06:59 18:59 Intake Total 600 Balance 600 - Labs Labs: 03/18/17 07:45 03/19/17 08:02 Assessment and Plan - Assessment and Plan (Free Text) Assessment: Patient is seen and examined. Alert and orientedx3, has some difficulty with walking. Denies sob or chest pains. Hyponatremia is improving Na 128 today. D/W DR Radha Che, plan to discharge home , walker and home PT arranged. Advised to follow up with DR Lee eL and PMD in 1 week.
== END 2017-03-19 16:00 | disposition home or self-care (01) | DRG 398 ==
LOC: C.ER 11:30 → C.9E 13:54 → C.3T 20:41
PROVIDERS: ADMIT Internal Medicine Nephrology; ATTEND Internal Medicine Nephrology
DX: D70.9 Neutropenia, unspecified (principal); E86.0 Dehydration; D69.6 Thrombocytopenia, unspecified; E87.1 Hypo-osmolality and hyponatremia; E87.6 Hypokalemia; N39.0 Urinary tract infection, site not specified; I10 Essential (primary) hypertension; M54.16 Radiculopathy, lumbar region; M54.30 Sciatica, unspecified side; Z85.850 Personal history of malignant neoplasm of thyroid; Z87.891 Personal history of nicotine dependence; Z92.3 Personal history of irradiation; D72.821 Monocytosis (symptomatic); Z68.1 Body mass index [BMI] 19.9 or less, adult

== ENCOUNTER 2017-04-11 19:02 | Emergency (ER) | payer MEDICAID ==
[2017-04-11 19:02] VITALS: BMI 15.7
--- NOTE | 2017-04-11 19:58 | C.PDOC ---
History Of Present Illness 56 year old female with PMHx of lymphoma presents to the ED for evaluation of a productive cough that been going on for the past 3 weeks. Patient states she feels SOB when she coughs, she reports she quit smoking approximately a year ago. Patient had an excision of lymph node in her right side neck due to cancer she had in March 2012 .Patient states she started having a nosebleed today after she was coughing. Patient denies fever, chills, nausea, vomit, diarrhea, leg swelling, weakness, numbness. Chief Complaint (Nursing): Shortness Of Breath History Per: Patient History/Exam Limitations: no limitations Onset/Duration Of Symptoms: Days Quality: Tightness Exacerbating Factor(s): Coughing Current Respiratory Medications: See Home Med List Associated Symptoms: Productive Cough Recent travel outside of the [place]: No Additional History Per: Patient Past Medical History Reviewed: Historical Data, Nursing Documentation, Vital Signs Vital Signs: Last Vital Signs Temp 98.9 F 04/11/17 22:56 Pulse 84 04/11/17 22:56 Resp 18 04/11/17 22:56 BP 150/99 H 04/11/17 22:56 Pulse Ox 100 04/11/17 23:03 - Medical History PMH: Colonic Polyps, HTN Denies: Chronic Kidney Disease Other PMH: Lymphoma Surgical History: Tonsillectomy - [facility] Procedures CLOSED BIOPSY OF SKIN AND SUBCUTANEOUS TISSUE (01/26/14) LARYGNOSCOPY AND OTH TRACHEOSCOPY (01/28/14) UVULA BIOPSY (01/28/14) Family History: States: Unknown Family Hx - Social History Hx Alcohol Use: No Hx Substance Use: No - Immunization History Hx Tetanus Toxoid Vaccination: No Hx Influenza Vaccination: No Hx Pneumococcal Vaccination: No Review Of Systems Constitutional: Negative for: Fever, Chills Cardiovascular: Negative for: Chest Pain, Palpitations Respiratory: Positive for: Cough, Shortness of Breath, Sputum Gastrointestinal: Negative for: Nausea, Vomiting, Abdominal Pain Genitourinary: Negative for: Dysuria Skin: Negative for: Rash Neurological: Negative for: Weakness, Numbness, Headache Physical Exam - Physical Exam Appears: Non-toxic, No Acute Distress Skin: Normal Color, Warm, Dry Head: Atraumatic, Normacephalic Eye(s): bilateral: Normal Inspection Nose: No Discharge, No Deformity Oral Mucosa: Moist Neck: Normal ROM, Supple Lymphatic: Other (Scar on her right sided neck) Chest: Symmetrical Cardiovascular: Rhythm Regular, No Murmur Respiratory: Normal Breath Sounds, No Rales, No Rhonchi, No Wheezing Gastrointestinal/Abdominal: Soft, No Tenderness, No Guarding, No Rebound Extremity: Normal ROM, No Tenderness, No Deformity, No Swelling Neurological/Psych: Oriented x3, Normal Speech, Normal Cognition Gait: Steady ED Course And Treatment - Laboratory Results Result Diagrams: 04/11/17 20:31 04/11/17 20:31 ECG: Interpreted By Me ECG Rhythm: Sinus Rhythm ECG Interpretation: Normal Interpretation Of ECG: NSR,78BPM,poor R wave progression,R axis deviation.Otherwise neg O2 Sat by Pulse Oximetry: 100 (On RA) Pulse Ox Interpretation: Normal - Radiology CXR: Interpreted by Me, Viewed By Me CXR Interpretation: Yes: Infiltrates (left basilar opacities may represent early inflitrate), Other (Slight hyper inflated). No: No Acute Disease - CT Scan/US CT angio chest Other Rad Studies (CT/US): Read By Radiologist, Radiology Report Reviewed CT/US Interpretation: EXAM: CT Angiography Chest With Intravenous Contrast. CLINICAL HISTORY: 56 years old, female; Signs and symptoms; Shortness of breath ; Additional info: SOB. TECHNIQUE: Axial computed tomographic angiography images of the chest with intravenous contrast using. pulmonary embolism protocol. All CT scans at this facility use one or more dose reduction. techniques, viz.: automated exposure control; ma/kV adjustment per patient size (including targeted. exams where dose is matched to indication; i.e. head); or iterative reconstruction technique. MIP reconstructed images were created and reviewed. Coronal and sagittal reformatted images were created and reviewed. CONTRAST: 100 mL of VISIPAQUE 320 administered intravenously. COMPARISON: No relevant prior studies available. FINDINGS: Pulmonary arteries: No pulmonary embolism. Aorta: No aneurysm. No dissection. Lungs: Mild centrilobular emphysematous changes. Mild atelectasis/scarring. Patchy central. consolidation left lower lobe. Pleural space: No significant effusion. No pneumothorax. Heart: Borderline cardiomegaly. Small pericardial effusion. Bones/joints: No acute fracture.Soft tissues: Unremarkable. Lymph nodes: No pathologically enlarged lymph nodes. Upper abdomen: Mild atherosclerotic disease. IMPRESSION: 1. No CT evidence of pulmonary embolism. 2. Probable LLL pneumonia. Followup to resolution to exclude underlying pathology. 3. Incidental/non-acute findings are described above. Medical Decision Making Medical Decision Making: Impression: cough, SOB Plan: * CT angio chest * EKG * Labs * CXR * Influenza A B test Disposition - Disposition Referrals: [facility] [Outside] Disposition: HOME/ ROUTINE Disposition Time: 05:51 Condition: FAIR Prescriptions: Levofloxacin [Levaquin] 500 mg PO DAILY #10 tablet Instructions: Pneumonia in Adults Forms: [facility] (Liberian) Print Language: ICELANDIC - Clinical Impression Clinical Impression: Respiratory tract infection - Scribe Statement The provider has reviewed the documentation as recorded by the Scribe Cory Goodrich All medical record entries made by the Scribe were at my direction and personally dictated by me. I have reviewed the chart and agree that the record accurately reflects my personal performance of the history, physical exam, medical decision making, and the department course for this patient. I have also personally directed, reviewed, and agree with the discharge instructions and disposition.
[2017-04-11 20:40] LABS: BASO % 0.3 % (0.0-2.0); EOS # 0.1 K/uL (0.0-0.7); EOS % 1.9 % (0.0-4.0); HEMOGLOBIN 9.9 g/dL (11.0-16.0); LYMPH # 0.8 K/uL (1.0-4.3); LYMPH % 15.9 % (20.0-40.0); MEAN CELL VOLUME 104.7 fL (81.0-99.0); MEAN CORPUSCULAR HEMOGLOBIN 36.8 pg (27.0-31.0); MEAN CORPUSCULAR HGB CONC 35.2 g/dL (33.0-37.0); MEAN PLATELET VOLUME 5.5 fL (7.2-11.7); MONO # 0.8 K/uL (0.0-0.8); NEUT # 3.5 K/uL (1.8-7.0); NEUT % 65.9 % (50.0-75.0); RBC 2.69 Mil/uL (3.80-5.20); WHITE BLOOD COUNT 5.3 K/uL (4.8-10.8)
[2017-04-11 20:59] LABS: ALBUMIN 3.7 g/dL (3.5-5.0); ALT/SGPT 18 U/L (9-52); AST/SGOT 19 U/L (14-36); BLOOD UREA NITROGEN 12 mg/dL (7-17); CALCIUM 9.5 mg/dl (8.6-10.4); GFR AFRICAN-AMERICAN > 60; GFR NON-AFRICAN AMERICAN > 60
[2017-04-11 21:01] LABS: B-TYPE NATRIURETIC PEPTIDE 94.5 pg/mL (0-900)
[2017-04-11] MEDS ORDERED: Iodixanol 320 MG/ML 100 ML BOTTLE IV ONE (21:05)
--- NOTE | 2017-04-11 22:14 | CT ---
EXAM: CT Angiography Chest With Intravenous Contrast CLINICAL HISTORY: 56 years old, female; Signs and symptoms; Shortness of breath; Additional info: SOB TECHNIQUE: Axial computed tomographic angiography images of the chest with intravenous contrast using pulmonary embolism protocol. All CT scans at this facility use one or more dose reduction techniques, viz.: automated exposure control; ma/kV adjustment per patient size (including targeted exams where dose is matched to indication; i.e. head); or iterative reconstruction technique. MIP reconstructed images were created and reviewed. Coronal and sagittal reformatted images were created and reviewed. CONTRAST: 100 mL of VISIPAQUE 320 administered intravenously. COMPARISON: No relevant prior studies available. FINDINGS: Pulmonary arteries: No pulmonary embolism. Aorta: No aneurysm. No dissection. Lungs: Mild centrilobular emphysematous changes. Mild atelectasis/scarring. Patchy central consolidation left lower lobe. Pleural space: No significant effusion. No pneumothorax. Heart: Borderline cardiomegaly. Small pericardial effusion. Bones/joints: No acute fracture. Soft tissues: Unremarkable. Lymph nodes: No pathologically enlarged lymph nodes. Upper abdomen: Mild atherosclerotic disease. IMPRESSION: 1. No CT evidence of pulmonary embolism. 2. Probable LLL pneumonia. Followup to resolution to exclude underlying pathology. 3. Incidental/non-acute findings are described above.
[2017-04-11 22:57] VITALS: BP 150/99; PULSE 84; RESP 18; TEMP 98.9
[2017-04-11 23:01] VITALS: O2SAT 100
--- NOTE | 2017-04-12 09:06 | RAD ---
HISTORY: SOB COMPARISON: Comparison is made with 03/13/2017 TECHNIQUE: Chest PA and lateral FINDINGS: LUNGS: Small opacities at the left lung base may represent atelectasis. Otherwise no significant interval change in the lungs PLEURA: No significant pleural effusion identified. No pneumothorax apparent. CARDIOVASCULAR: Normal. OSSEOUS STRUCTURES: No significant abnormalities. VISUALIZED UPPER ABDOMEN: Normal. OTHER FINDINGS: None. IMPRESSION: Small opacities at the left lung base may represent atelectasis. Otherwise no interval changes
--- NOTE | 2017-04-14 12:50 | CARD ---
APPROVED REPORT EKG Measurement Heart [id number] <Conclusion> Normal sinus rhythm Rightward axis Cannot rule out Anteroseptal infarct, age undetermined Abnormal ECG
== END 2017-04-11 23:10 | disposition home or self-care (01) ==
LOC: C.ER 19:02
DX: J98.8 Other specified respiratory disorders (principal); I10 Essential (primary) hypertension; Z87.891 Personal history of nicotine dependence
CPT/HCPCS: 71046; 71275; 80053; 83880; 84484; 85025; 85378; 87804; 93005; 99284; Q9967